=== PATIENT | female | born 1975 | race Two or more races ===

== ENCOUNTER 2016-05-18 22:21 | Emergency (ER) | payer OTHER ==
--- NOTE | 2016-05-19 03:51 | ER Document Report ---
HPI - HPI Patient complains to provider of: right upper arm injury Onset: Other - tuesday Onset/Duration: Persistent Quality of pain: Achy Severity: Moderate Pain Level: 3 Context: She presents emergency department with right upper arm pain after she was cleaning a bathtub at work and fell into the bathtub onto her right upper arm. She reports this happened on Tuesday and she is still hurting. Denies past medical history of injury to the arm. Patient has full range of motion no obvious deformity/ ecchymosis or swelling noted Associated Symptoms: None Exacerbated by: Denies Relieved by: Denies Similar symptoms previously: No Recently seen / treated by doctor: No - CONSTITUTIONAL Constitutional: DENIES: Fever, Chills - REPRODUCTIVE LMP: 2 wks ago - DERM Skin Color: Normal - NURSING COMMENTS Comment: Pt here for pain to Right shoulder, elbow and arm. 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 icehot, heat packs and ibuprofen used at home with little relief. Past Medical History - General Information source: Patient Last Menstrual Period: 3 weeks ago - Social History Smoking Status: Never Smoker Cigarette use (# per day): No Frequency of alcohol use: Occasional Drug Abuse: None Occupation: [employer] Lives with: Family Family History: None Patient has suicidal ideation: No Patient has homicidal ideation: No - Medical History Medical History: Negative Renal/ Medical History: Denies: Hx Peritoneal Dialysis Past Surgical History: Reports: Other - Rhinoplasty Vertical Provider Document - CONSTITUTIONAL Agree With Documented VS: Yes Exam Limitations: No Limitations General Appearance: WD/WN, No Apparent Distress - INFECTION CONTROL TRAVEL OUTSIDE OF THE [place] IN LAST 30 DAYS: No - HEENT HEENT: Atraumatic, Normocephalic - NECK Neck: Normal Inspection, Supple. negative: Lymphadenopathy-Left, Lymphadenopathy-Right - RESPIRATORY Respiratory: Breath Sounds Normal, No Respiratory Distress - CARDIOVASCULAR Cardiovascular: Regular Rate, Regular Rhythm - MUSCULOSKELETAL/EXTREMETIES Musculoskeletal/Extremeties: MAEW, FROM, Non-Tender - Nontender to palpation to right upper arm, elbow, no obvious deformity or swelling no warmth or erythema good radial pulse post cap refill full range of motion - NEURO Level of Consciousness: Awake, Alert, Appropriate Motor/Sensory: No Motor Deficit - DERM Integumentary: Warm, Dry Adult Front & Back Diagram: 1 - c/o pain Discharge - Discharge Clinical Impression: Injury of right upper arm Qualifiers: Encounter type: initial encounter Qualified Code(s): S49.91XA - Unspecified injury of right shoulder and upper arm, initial encounter Condition: Stable Disposition: HOME, SELF-CARE Instructions: Use of Pcuy-Ubl-Tvnitwg Ibuprofen ([facility]) Additional Instructions: *You have been evaluated for right upper arm pain *Follow up with orthopedics for continued pain-call for an appointment *Take ibuprofen as indicated for pain *Follow up with a primary care provider within one week for recheck. *Return to ED for worsening condition, changes, needs Forms: Return to Work
[2016-05-19 04:15] VITALS: BP 109/77
== END 2016-05-19 04:15 | disposition home or self-care (01) ==
LOC: ER 22:21
DX: S49.91XA Unspecified injury of right shoulder and upper arm, initial encounter (principal); M79.601 Pain in right arm; X58.XXXA Exposure to other specified factors, initial encounter
CPT/HCPCS: 99284

== ENCOUNTER → 2017-03-31 | Outpatient (CLI) | payer BC ==
--- NOTE | 2017-03-31 13:16 | WOMENS IMAGING REPORT ---
EXAM DESCRIPTION: BILAT SCREENING MAMMO W/CAD COMPLETED DATE/TIME: 03/31/2017 1:04 pm REASON FOR STUDY: SCREENING MAMMO Z12.31 ENCNTR SCREEN MAMMOGRAM FOR MALIGNANT NEOPLASM OF JAZZ COMPARISON: None. TECHNIQUE: Standard craniocaudal and mediolateral oblique views of each breast recorded using digita l acquisition. LIMITATIONS: None. FINDINGS: No masses, calcifications or architectural distortion. No areas of suspicion. Read with the assistance of CAD. .[facility] - R2 Cenova Version 1.3 .[facility] Imaging - R2 Cenova Version 1.3 .[facility] Imaging - R2 Cenova Version 2.4 .[facility] - R2 Cenova Version 2.4 .[facility] - R2 Telemarketing Agent Version 9.2 IMPRESSION: NORMAL MAMMOGRAM. BIRADS 1. BREAST DENSITY: b. There are scattered areas of fibroglandular density. BIRAD: 1 NEGATIVE RECOMMENDATION: ROUTINE SCREENING COMMENT: The patient has been notified of the results by letter per SA requirements. Additional no tification policies are in place for contacting patient with suspicious or incomplete findings. Quality ID #[id number]: The [employer] recommends an annual screening mammogram for women aged 40 years or over. This facility utilizes a reminder system to ensure that all patients receive reminder letters, and/or direct phone calls for appointments. This includes reminders for routine scr eening mammograms, diagnostic mammograms, or other Breast Imaging Interventions when appropriate. Th is patient will be placed in the appropriate reminder system. The [employer] (ACR) has developed recommendations for screening MRI of the breast s in certain patient populations, to be used in conjunction with mammography. Breast MRI surveillanc e may be appropriate for women with more than 20% lifetime risk of developing breast cancer as deter mined by genetic testing, significant family history of the disease, or history of mantle radiation f or Hodgkins Disease. ACR Practice Guidelines 2008. TECHNICAL DOCUMENTATION: FINDING NUMBER: (1) ASSESSMENT: (1) JOB ID: [id number] [employer]- All Rights Reserved
== END ==
LOC: WI 08:19
PROVIDERS: ATTEND Physician Assistant
DX: Z12.31 Encounter for screening mammogram for malignant neoplasm of breast (principal)
CPT/HCPCS: 77067

== ENCOUNTER 2017-12-19 14:03 | Inpatient (IN) | payer BC, OTHER, MEDICAID ==
[2017-12-19] MEDS ORDERED: ONDANSETRON HCL INJ/PF 4 MG/2 ML SDV IV PRN (14:13)
[2017-12-19] MEDS ORDERED: IBUPROFEN 600 MG TABLET PO PRN (14:17)
--- NOTE | 2017-12-19 14:33 | PDOC H&P ---
History of Present Illness Admission Date/PCP: 12/19/17 14:03 YAMILKA JORDAN Patient complains of: Right-sided flank pain and a fever History of Present Illness: WOJCIECH VILLANUEVA is a 42 year old female Ms. Villanueva is a 42 y/o F with [facility] of Depression, migraines presenting today as walk in complaining of one day history of nausea, vomiting, fever, chills and R low back pain as well as headache. She states she has not been having any urinary symptoms, admits to R low back pain. She admits she feels bloated, has mild epigastric pain. NO change in BM, last BM was yesterday, was stable without blood. No vaginal discharge. She has no history of renal stones. She is followed by psych regularly, taking her medications. LMP was August, irregular per pt. Patient had a CT scan of the abdomen and pelvis done with source the patient have a right perinephric inflammation's and patient's white count is elevated 15 most likely suggest the patient have a right-sided pyelonephritis Discussed with the patient and her patients need IV antibiotic for at least next 72 hours to further close monitor and IV fluid and further evaluation and the patient in the understand and decided to admit directly in the hospital Past Medical History Neurological Medical History: Reports: Migraine Psychiatric Medical History: Reports: Depression, General Anxiety Disorder Past Surgical History Past Surgical History: Reports: None, Other - Rhinoplasty Social History Information Source: Patient Smoking Status: Unknown if Ever Smoked Frequency of Alcohol Use: Rare Hx Recreational Drug Use: No Hx Prescription Drug Abuse: No Family History Family History: None, Reviewed & Not Pertinent Parental Family History Reviewed: Yes Children Family History Reviewed: Yes Sibling(s) Family History Reviewed.: Yes Medication/Allergy Allergies/Adverse Reactions: No Known Allergies Allergy (Unverified 05/19/16 00:30) Review of Systems Constitutional: PRESENT: chills, fever(s), headache(s). ABSENT: weight gain, weight loss Eyes: ABSENT: visual disturbances Ears: ABSENT: hearing changes Cardiovascular: ABSENT: chest pain, dyspnea on exertion, edema, orthropnea, palpitations Respiratory: ABSENT: cough, hemoptysis Gastrointestinal: PRESENT: abdominal pain, nausea, vomiting. ABSENT: constipation, diarrhea, hematemesis, hematochezia Genitourinary: ABSENT: dysuria, hematuria Musculoskeletal: ABSENT: joint swelling Integumentary: ABSENT: rash, wounds Neurological: ABSENT: abnormal gait, abnormal speech, confusion, dizziness, focal weakness, syncope Psychiatric: ABSENT: anxiety, depression, homidical ideation, suicidal ideation Endocrine: ABSENT: cold intolerance, heat intolerance, menstrual abnormalities, polydipsia, polyuria Hematologic/Lymphatic: ABSENT: easy bleeding, easy bruising, lymphadenopathy Physical Exam General appearance: PRESENT: no acute distress, well-developed, well-nourished Head exam: PRESENT: atraumatic, normocephalic Eye exam: PRESENT: conjunctiva pink, EOMI, PERRLA. ABSENT: scleral icterus Ear exam: PRESENT: normal external ear exam Mouth exam: PRESENT: moist, tongue midline Neck exam: PRESENT: full ROM. ABSENT: carotid bruit, JVD, lymphadenopathy, thyromegaly Respiratory exam: PRESENT: clear to auscultation mary Cardiovascular exam: PRESENT: RRR. ABSENT: diastolic murmur, rubs, systolic murmur Pulses: PRESENT: normal dorsalis pedis pul, +2 pedal pulses bilateral Vascular exam: PRESENT: normal capillary refill GI/Abdominal exam: PRESENT: normal bowel sounds, soft, tenderness. ABSENT: distended, guarding, mass, organolmegaly, rebound Additonal comments: Right CVA tenderness Rectal exam: PRESENT: deferred Extremities exam: ABSENT: pedal edema Musculoskeletal exam: PRESENT: ambulatory Neurological exam: PRESENT: alert, awake, oriented to person, oriented to place , oriented to time, oriented to situation, CN II-XII grossly intact. ABSENT: motor sensory deficit Psychiatric exam: PRESENT: appropriate affect, normal mood. ABSENT: homicidal ideation, suicidal ideation Skin exam: PRESENT: dry, intact, warm. ABSENT: cyanosis, rash Assessment & Plan - Diagnosis (1) Pyelonephritis Is this a current diagnosis for this admission?: Yes Plan: Patient CT scan of the abdomen and pelvis shows some right sided perinephric inflammation's with elevated white count most likely suggest the right-sided pyelonephritis start the patient on IV Cipro twice a day and IV fluid (2) Urinary tract bacterial infections Is this a current diagnosis for this admission?: Yes Plan: Send the urine for the culture (3) Fever Qualifiers: Fever type: unspecified Qualified Code(s): R50.9 - Fever, unspecified Is this a current diagnosis for this admission?: Yes Plan: Get the urine culture blood cultures start the antibiotic most likely due to the above conditions (4) Migraine Qualifiers: Migraine type: unspecified Intractability: not intractable Is this a current diagnosis for this admission?: Yes Plan: Continues to current medications (5) Generalized anxiety disorder Is this a current diagnosis for this admission?: Yes Plan: Currently stable continues to current medication - Inpatient Certification Based on my medical assessment, after consideration of the patient's comorbidities, presenting symptoms, or acuity I expect that the services needed warrant INPATIENT care.: Yes I certify that my determination is in accordance with my understanding of Medicare's requirements for reasonable and necessary INPATIENT services [42 CFR 412.3e].: Yes Medical Necessity: Need For IV Fluids, Need for IV Antibiotics Post Hospital Care: D/C Supervisor Wound Documentation - Plan Summary Plan Summary: See MD orders
[2017-12-19] MEDS: ACETAMINOPHEN 325 MG TABLET PO PRN ×2 (15:08→21:03)
[2017-12-19] MEDS: CIPROFLOXACIN 400 MG/D5W RTU 400 MG/200 ML RTUPB IV SCH ×2 (15:35→21:05)
[2017-12-19 16:56] LABS: APPEARANCE,URINE SLIGHTLY-CLOUDY; BILIRUBIN,URINE NEGATIVE (NEGATIVE); COLOR,URINE YELLOW; GLUCOSE, URINE NEGATIVE (NEGATIVE); KETONES,URINE NEGATIVE (NEGATIVE); LEUKOCYTE ESTERASE,URINE SMALL (NEGATIVE); NITRITE,URINE NEGATIVE (NEGATIVE); PROTEIN,URINE 30 mg/dL (NEGATIVE); URINE SPECIFIC GRAVITY 1.011
--- NOTE | 2017-12-19 18:30 | EKG REPORT ---
SEVERITY:- OTHERWISE NORMAL ECG - SINUS TACHYCARDIA : Confirmed by: Bud Boyce MD 19-Dec-2017 18:29:55
--- NOTE | 2017-12-19 19:02 | RADIOLOGY REPORT (SQ) ---
EXAM DESCRIPTION: CT HEAD WITHOUT COMPLETED DATE/TIME: 12/19/2017 6:53 pm REASON FOR STUDY: SYNCOPE COMPARISON: None. TECHNIQUE: Axial images acquired through the brain without intravenous contrast. Images reviewed wi th bone, brain and subdural windows. Additional sagittal and coronal reconstructions were generated. Images stored on PACS. All CT scanners at this facility use dose modulation, iterative reconstruction, and/or weight based d osing when appropriate to reduce radiation dose to as low as reasonably achievable (ALARA). [facility]: Dose Right [facility]: CareDose [facility]: Dose Right [facility]: Teradose 4D [facility]: [employer] RADIATION DOSE: CT Rad equipment meets quality standard of care and radiation dose reduction techniq ues were employed. CTDIvol: 53.2 mGy. DLP: 1124 mGy-cm. mGy. LIMITATIONS: None. FINDINGS: VENTRICLES: Normal size and contour. CEREBRUM: No masses. No hemorrhage. No midline shift. No evidence for acute infarction. Normal gra y/white matter differentiation. No areas of low density in the white matter. CEREBELLUM: No masses. No hemorrhage. No alteration of density. No evidence for acute infarction. EXTRAAXIAL SPACES: No fluid collections. No masses. ORBITS AND GLOBE: No intra- or extraconal masses. Normal contour of globe without masses. CALVARIUM: No fracture. PARANASAL SINUSES: No fluid or mucosal thickening. SOFT TISSUES: No mass or hematoma. OTHER: No other significant finding. IMPRESSION: NORMAL BRAIN CT WITHOUT CONTRAST. EVIDENCE OF ACUTE STROKE: NO. COMMENT: Quality ID # [id number]: Final reports with documentation of one or more dose reduction techniques (e.g., Automated exposure control, adjustment of the mA and/or kV according to patient size, use of iterative reconstruction technique) TECHNICAL DOCUMENTATION: JOB ID: [id number] [employer]- All Rights Reserved Reading location - IP/workstation name: [email or web address]
[2017-12-19] MEDS: FAMOTIDINE 20 MG TABLET PO SCH (21:03)
[2017-12-19] MEDS: CYCLOBENZAPRINE HCL 10 MG TABLET PO SCH (21:03)
[2017-12-19] MEDS: AMITRIPTYLINE HCL 75 MG TABLET PO SCH (21:05)
[2017-12-19] MEDS ORDERED: AMITRIPTYLINE HCL 150 MG PO SCH (22:00)
[2017-12-19] MEDS ORDERED: (PENDING PHARMACY ID) (Cyclobenzaprine Hcl [Flexeril 5 Mg Tablet] 5 MG) PO SCH (22:00)
[2017-12-19] MEDS ORDERED: LORAZEPAM 1 MG TABLET PO SCH (22:00)
[2017-12-20 05:54] LABS: HEMATOCRIT 34.7 % (36.0-47.0); MEAN CORPUSCULAR HEMOGLOBIN 29.8 pg (27.0-33.4); MEAN CORPUSCULAR HGB CONC 34.5 g/dL (32.0-36.0); MEAN CORPUSCULAR VOLUME 86 fl (80-97); PLATELET COUNT 245 10^3/uL (150-450); RED BLOOD COUNT 4.02 10^6/uL (3.72-5.28); RED CELL DISTRIBUTION WIDTH 14.3 % (11.5-14.0); WHITE BLOOD COUNT 11.5 10^3/uL (4.0-10.5)
[2017-12-20 06:12] LABS: ALANINE AMINOTRANSFERASE 54 U/L (9-52); ALBUMIN 3.5 g/dL (3.5-5.0); ALKALINE PHOSPHATASE 77 U/L (38-126); ANION GAP 11 (5-19); ASPARTATE AMINO TRANSFERASE 29 U/L (14-36); BILIRUBIN,DIRECT 0.2 mg/dL (0.0-0.4); BILIRUBIN,TOTAL 0.6 mg/dL (0.2-1.3); BLOOD UREA NITROGEN 8 mg/dL (7-20); CALCIUM 9.3 mg/dL (8.4-10.2); CARBON DIOXIDE 27 mmol/L (22-30); CHLORIDE 103 mmol/L (98-107); GLUCOSE 119 mg/dL (75-110); POTASSIUM 4.2 mmol/L (3.6-5.0); SODIUM 141.3 mmol/L (137-145); TOTAL PROTEIN 6.9 g/dL (6.3-8.2)
[2017-12-20 07:01] LABS: ABSOLUTE LYMPHOCYTES# (MANUAL) 0.8 10^3/uL (0.5-4.7); ABSOLUTE MONOCYTES # (MANUAL) 0.5 10^3/uL (0.1-1.4); ABSOLUTE NEUTROPHILS# (MANUAL) 10.2 10^3/uL (1.7-8.2); BAND NEUTROPHILS % (MANUAL) 1 % (3-5); BASOPHILS % (MANUAL) 0 % (0-2); EOSINOPHILS % (MANUAL) 0 % (0-6); LYMPHOCYTES % (MANUAL) 5 % (13-45); MONOCYTES % (MANUAL) 4 % (3-13); SEGMENTED NEUTROPHILS % (MAN) 88 % (42-78); TOTAL CELLS COUNTED 100
[2017-12-20 07:03] LABS: ANISOCYTOSIS SLIGHT; OVALOCYTES SLIGHT; PLATELET COMMENT ADEQUATE; POIKILOCYTOSIS SLIGHT; TOXIC GRANULATION 1+
[2017-12-20] MEDS: ENOXAPARIN SODIUM INJ 40 MG/0.4 ML DISP.SYRIN SUBCUT SCH (09:39)
[2017-12-20] MEDS: ACETAMINOPHEN 325 MG TABLET PO PRN ×2 (09:40→16:38)
[2017-12-20] MEDS: CIPROFLOXACIN 400 MG/D5W RTU 400 MG/200 ML RTUPB IV SCH (09:40)
[2017-12-20] MEDS: FAMOTIDINE 20 MG TABLET PO SCH ×2 (09:40→21:26)
[2017-12-20] MEDS ORDERED: SERTRALINE HCL 50 MG TABLET PO SCH (10:00)
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
--- NOTE | 2017-12-20 10:51 | PDOC PROGRESS REPORT ---
Subjective Progress Note for:: 12/20/17 Subjective:: Patient is currently doing fair Patient's denied any chest pain denied any shortness of the breath Patient still have a lot of anxiety still running a fever Patient also tachycardic due to the fever Patient CT of the head was negative And it was some syncopal episode when he admitted yesterday but very brief and most likely related to the according to the hospital probably from anxiety Since currently seen by the psych Reason For Visit: RIGHT SIDED PYLONEPHRITIS Physical Exam Vital Signs: Temp Pulse Resp BP Pulse Ox 102.8 F H 131 H 24 H 114/65 97 12/20/17 10:11 12/20/17 10:11 12/20/17 10:11 12/20/17 10:11 12/20/17 10:11 Intake & Output 12/19/17 12/20/17 12/21/17 06:59 06:59 06:59 Intake Total 942 Output Total 1700 Balance -758 Weight 81.8 kg General appearance: PRESENT: no acute distress, well-developed, well-nourished Head exam: PRESENT: atraumatic, normocephalic Eye exam: PRESENT: conjunctiva pink, EOMI, PERRLA. ABSENT: scleral icterus Ear exam: PRESENT: normal external ear exam Mouth exam: PRESENT: moist, tongue midline Neck exam: PRESENT: full ROM. ABSENT: carotid bruit, JVD, lymphadenopathy, thyromegaly Respiratory exam: PRESENT: clear to auscultation mary Cardiovascular exam: PRESENT: RRR, tachycardia. ABSENT: diastolic murmur, rubs , systolic murmur Pulses: PRESENT: normal dorsalis pedis pul, +2 pedal pulses bilateral Vascular exam: PRESENT: normal capillary refill GI/Abdominal exam: PRESENT: normal bowel sounds, soft. ABSENT: distended, guarding, mass, organolmegaly, rebound, tenderness Rectal exam: PRESENT: deferred Extremities exam: ABSENT: pedal edema Neurological exam: PRESENT: alert, awake, oriented to person, oriented to place , oriented to time, oriented to situation, CN II-XII grossly intact. ABSENT: motor sensory deficit Psychiatric exam: PRESENT: appropriate affect, normal mood. ABSENT: homicidal ideation, suicidal ideation Skin exam: PRESENT: dry, intact, warm. ABSENT: cyanosis, rash Results Laboratory Results: 12/20/17 05:16 12/20/17 05:16 12/19/17 12/20/17 12/20/17 16:28 05:16 05:16 WBC 11.5 H RBC 4.02 Hgb 12.0 Hct 34.7 L MCV 86 MCH 29.8 MCHC 34.5 RDW 14.3 H Plt Count 245 Seg Neutrophils % Not Reportable Lymphocytes % Not Reportable Monocytes % Not Reportable Eosinophils % Not Reportable Basophils % Not Reportable Absolute Neutrophils Not Reportable Absolute Lymphocytes Not Reportable Absolute Monocytes Not Reportable Absolute Eosinophils Not Reportable Absolute Basophils Not Reportable Sodium 141.3 Potassium 4.2 Chloride 103 Carbon Dioxide 27 Anion Gap 11 BUN 8 Creatinine 0.71 Est GFR ( Amer) > 60 Est GFR (Non-Af Amer) > 60 Glucose 119 H Calcium 9.3 Total Bilirubin 0.6 AST 29 ALT 54 H Alkaline Phosphatase 77 Total Protein 6.9 Albumin 3.5 Urine Color YELLOW Urine Appearance SLIGHTLY-CLOUDY Urine pH 6.0 Ur Specific [place] 1.011 Urine Protein 30 H Urine Glucose (UA) NEGATIVE Urine Ketones NEGATIVE Urine Blood SMALL H Urine Nitrite NEGATIVE Ur Leukocyte Esterase SMALL H Urine WBC (Auto) 10 Urine RBC (Auto) 3 Impressions: Head CT 12/19/17 00:00 IMPRESSION: NORMAL BRAIN CT WITHOUT CONTRAST. EVIDENCE OF ACUTE STROKE: NO. Assessment & Plan - Diagnosis (1) Pyelonephritis Is this a current diagnosis for this admission?: Yes Plan: Patient urine cultures grew out gram-negative organism will continues to IV Cipro and follow with the culture and sensitivity (2) Urinary tract bacterial infections Is this a current diagnosis for this admission?: Yes Plan: Send the urine for the culture (3) Fever Qualifiers: Fever type: unspecified Qualified Code(s): R50.9 - Fever, unspecified Is this a current diagnosis for this admission?: Yes Plan: Continues to IV antibiotic (4) Migraine Qualifiers: Migraine type: unspecified Intractability: not intractable Is this a current diagnosis for this admission?: Yes Plan: Continues to current medications (5) Generalized anxiety disorder Is this a current diagnosis for this admission?: Yes Plan: Currently stable continues to current medication - Time Time Spent with patient: 15-24 minutes Medications reviewed and adjusted accordingly: Yes Anticipated discharge: Home Within: Other - Inpatient Certification Based on my medical assessment, after consideration of the patient's comorbidities, presenting symptoms, or acuity I expect that the services needed warrant INPATIENT care.: Yes I certify that my determination is in accordance with my understanding of Medicare's requirements for reasonable and necessary INPATIENT services [42 CFR 412.3e].: Yes Medical Necessity: Need Close Monitoring Due to Risk of Patient Decompensation, Need For IV Fluids, Need for IV Antibiotics Post Hospital Care: D/C Recreation Therapy Aide Documentation - Plan Summary Plan Summary: Continues to IV antibiotic wait for the culture and sensitivity continues to IV fluid
[2017-12-20] MEDS: VENLAFAXINE HCL 37.5 MG CAP.SR.24H PO SCH (11:12)
[2017-12-20] MEDS: BUSPIRONE HCL 10 MG TABLET PO SCH ×2 (11:12→17:00)
--- NOTE | 2017-12-20 14:34 | Progress Note ---
Provider Note Provider Note: ID Consult Note Asked to review patient's chart by Pharmacy. Pt not seen or examined. Pt is a 42 year old woman who presented for admission on 12/19/17 with c/o R sided flank pain and fever. She reported 1 day hx of nausea, vomiting, fever, chills, R low back pain. Pt had fever up to 103 F on presentation and tachycardia. On exam, pt was noted to have R CVAT. BCx were drawn and from one set a GNR that has yet to be identified has grown. U/A included small amount of leukocyte esterase and 10 wbc/hpf. Urine culture is also in process and has been preliminarily reported as also showing GNRs. CT abdomen and pelvis without contrast showed edematous appearing R kidney with perinephric stranding. Empirically Cipro IV was started 400 q 8h. Impression/Recommendations Pt has sepsis due to Gram negative bacillary bacteremia, suspected to be secondary to pyelonephritis. Regarding empiric antibiotic therapy: Based on the [facility] antibiogram, 90% or greater isolates of E coli (which is the most common uropathogen) are susceptible to Rocephin, Zosyn, or cefepime. This is in contrast to Cipro, for which only 80% of isolates of E coli were reported susceptible. If pt has not shown improvement with empiric Cipro, the possibility of a resistant isolate should be kept in mind, and it would be reasonable to change from Cipro to any one of these three agents. Depending on susceptibility results, it might be possible to later switch back to either Cipro PO or Bactrim PO to complete treatment once pt has improved sufficiently and consistently is able to tolerate PO intake. If pt reports IV antibiotic exposure in the past 3 months, the possibility of the patient having been colonized with Pseudomonas aeruginosa could also be entertained, and an antipseudomonal antibiotic such as Zosyn or cefepime in that situation would make sense to use empirically. If this history is unknown, suggest Zosyn or cefepime and then de-escalating subsequently. Lukas Saravia MD [facility] Infectious Diseases pager [phone]
[2017-12-20] MEDS: CEFEPIME 2 GM/D5W RTU 2 GM/50 ML RTUPB IV SCH (15:47)
[2017-12-20] MEDS: NORMAL SALINE 1000 ML 1,000 ML IV PRN (15:48)
[2017-12-20] MEDS: AMITRIPTYLINE HCL 75 MG TABLET PO SCH (21:26)
[2017-12-20] MEDS: CYCLOBENZAPRINE HCL 10 MG TABLET PO SCH (21:26)
[2017-12-20] MEDS: LORAZEPAM 1 MG TABLET PO PRN (21:26)
[2017-12-21] MEDS: ACETAMINOPHEN 325 MG TABLET PO PRN ×3 (00:20→22:03)
[2017-12-21] MEDS: NORMAL SALINE 1000 ML 1,000 ML IV PRN (02:36)
[2017-12-21 04:37] LABS: ABSOLUTE LYMPHOCYTES (AUTO) 1.1 10^3/uL (0.5-4.7); ABSOLUTE NEUT (AUTO) 7.6 10^3/uL (1.7-8.2); BASOPHILS % (AUTO) 0.3 % (0-2); EOSINOPHILS % (AUTO) 0.1 % (0-6); HEMATOCRIT 31.4 % (36.0-47.0); HEMOGLOBIN 10.9 g/dL (12.0-15.5); LYMPHOCYTES % (AUTO) 11.5 % (13-45); MEAN CORPUSCULAR HEMOGLOBIN 29.6 pg (27.0-33.4); MEAN CORPUSCULAR HGB CONC 34.8 g/dL (32.0-36.0); MEAN CORPUSCULAR VOLUME 85 fl (80-97); MONOCYTES % (AUTO) 10.3 % (3-13); PLATELET COUNT 250 10^3/uL (150-450); SEGMENTED NEUTROPHILS % (AUTO) 77.8 % (42-78); TOTAL CELLS COUNTED % (AUTO) 100 %; WHITE BLOOD COUNT 9.8 10^3/uL (4.0-10.5)
[2017-12-21 05:05] LABS: ANION GAP 14 (5-19); BLOOD UREA NITROGEN 4 mg/dL (7-20); CALCIUM 8.8 mg/dL (8.4-10.2); CARBON DIOXIDE 21 mmol/L (22-30); CHLORIDE 107 mmol/L (98-107); GLUCOSE 119 mg/dL (75-110); SODIUM 142.3 mmol/L (137-145)
[2017-12-21] MEDS: CEFEPIME 2 GM/D5W RTU 2 GM/50 ML RTUPB IV SCH ×2 (05:23→17:16)
[2017-12-21] MEDS ORDERED: NORMAL SALINE 1000 ML 1,000 ML IV PRN (07:42)
[2017-12-21] MEDS: BUSPIRONE HCL 10 MG TABLET PO SCH ×2 (09:04→17:17)
[2017-12-21] MEDS: ENOXAPARIN SODIUM INJ 40 MG/0.4 ML DISP.SYRIN SUBCUT SCH (09:06)
[2017-12-21] MEDS: FAMOTIDINE 20 MG TABLET PO SCH ×2 (09:07→21:09)
[2017-12-21] MEDS: VENLAFAXINE HCL 37.5 MG CAP.SR.24H PO SCH (09:11)
--- NOTE | 2017-12-21 09:44 | PDOC PROGRESS REPORT ---
Subjective Progress Note for:: 12/21/17 Subjective:: Patient is feeling much better patient his fever is also coming down patient was put on IV cefepime yesterday Patient is E. coli sensitive to the Cipro and cefepime both Will wait for the [facility] report Reason For Visit: RIGHT SIDED PYLONEPHRITIS Physical Exam Vital Signs: Temp Pulse Resp BP Pulse Ox 97.8 F 92 14 90/53 L 100 12/21/17 08:05 12/21/17 08:05 12/21/17 08:05 12/21/17 08:05 12/21/17 08:05 Intake & Output 12/20/17 12/21/17 12/22/17 06:59 06:59 06:59 Intake Total 942 1818 Output Total 1700 Balance -758 1818 Weight 81.8 kg 82.7 kg General appearance: PRESENT: no acute distress, well-developed, well-nourished Head exam: PRESENT: atraumatic, normocephalic Eye exam: PRESENT: conjunctiva pink, EOMI, PERRLA. ABSENT: scleral icterus Ear exam: PRESENT: normal external ear exam Mouth exam: PRESENT: moist, tongue midline Neck exam: PRESENT: full ROM. ABSENT: carotid bruit, JVD, lymphadenopathy, thyromegaly Respiratory exam: PRESENT: clear to auscultation mary Cardiovascular exam: PRESENT: RRR. ABSENT: diastolic murmur, rubs, systolic murmur Pulses: PRESENT: normal dorsalis pedis pul, +2 pedal pulses bilateral Vascular exam: PRESENT: normal capillary refill GI/Abdominal exam: PRESENT: normal bowel sounds, soft. ABSENT: distended, guarding, mass, organolmegaly, rebound, tenderness Rectal exam: PRESENT: deferred Musculoskeletal exam: PRESENT: ambulatory Neurological exam: PRESENT: alert, awake, oriented to person, oriented to place , oriented to time, oriented to situation, CN II-XII grossly intact. ABSENT: motor sensory deficit Psychiatric exam: PRESENT: appropriate affect, normal mood. ABSENT: homicidal ideation, suicidal ideation Skin exam: PRESENT: dry, intact, warm. ABSENT: cyanosis, rash Results Laboratory Results: 12/21/17 04:18 12/21/17 04:18 12/21/17 12/21/17 12/21/17 04:18 04:18 04:18 WBC 9.8 RBC 3.70 L Hgb 10.9 L Hct 31.4 L MCV 85 MCH 29.6 MCHC 34.8 RDW 14.0 Plt Count 250 Seg Neutrophils % 77.8 Lymphocytes % 11.5 L Monocytes % 10.3 Eosinophils % 0.1 Basophils % 0.3 Absolute Neutrophils 7.6 Absolute Lymphocytes 1.1 Absolute Monocytes 1.0 Absolute Eosinophils 0.0 Absolute Basophils 0.0 Sodium 142.3 Potassium 4.0 Chloride 107 Carbon Dioxide 21 L Anion Gap 14 BUN 4 L Creatinine 0.54 Est GFR ( Amer) > 60 Est GFR (Non-Af Amer) > 60 Glucose 119 H Lactic Acid 0.9 Calcium 8.8 Impressions: Head CT 12/19/17 00:00 IMPRESSION: NORMAL BRAIN CT WITHOUT CONTRAST. EVIDENCE OF ACUTE STROKE: NO. Assessment & Plan - Diagnosis (1) Pyelonephritis Is this a current diagnosis for this admission?: Yes Plan: Continues to IV antibiotic hopefully discharge with the p.o. antibiotic if remains afebrile next 24 hours (2) Urinary tract bacterial infections Is this a current diagnosis for this admission?: Yes Plan: Send the urine for the culture (3) Fever Qualifiers: Fever type: unspecified Qualified Code(s): R50.9 - Fever, unspecified Is this a current diagnosis for this admission?: Yes Plan: Continues to IV antibiotic (4) Migraine Qualifiers: Migraine type: unspecified Intractability: not intractable Is this a current diagnosis for this admission?: Yes Plan: Continues to current medications (5) Generalized anxiety disorder Is this a current diagnosis for this admission?: Yes Plan: Currently stable continues to current medication (6) Gram negative sepsis Is this a current diagnosis for this admission?: Yes Plan: Continues to IV antibiotic - Time Time Spent with patient: 15-24 minutes Medications reviewed and adjusted accordingly: Yes Anticipated discharge: Home Within: within 24 hours - Inpatient Certification Based on my medical assessment, after consideration of the patient's comorbidities, presenting symptoms, or acuity I expect that the services needed warrant INPATIENT care.: Yes I certify that my determination is in accordance with my understanding of Medicare's requirements for reasonable and necessary INPATIENT services [42 CFR 412.3e].: Yes Medical Necessity: Need For IV Fluids, Need for IV Antibiotics Post Hospital Care: D/C Psychiatric Orderly Documentation - Plan Summary Plan Summary: Continues to current medication
[2017-12-21] MEDS: AMITRIPTYLINE HCL 75 MG TABLET PO SCH (21:08)
[2017-12-21] MEDS: CYCLOBENZAPRINE HCL 10 MG TABLET PO SCH (21:09)
[2017-12-21] MEDS: LORAZEPAM 1 MG TABLET PO PRN (21:09)
[2017-12-22 04:44] VITALS: BP 104/67
[2017-12-22 05:32] LABS: ABSOLUTE EOSINOPHILS # (AUTO) 0.1 10^3/uL (0.0-0.6); ABSOLUTE LYMPHOCYTES (AUTO) 1.5 10^3/uL (0.5-4.7); ABSOLUTE MONOCYTES (AUTO) 0.8 10^3/uL (0.1-1.4); ABSOLUTE NEUT (AUTO) 3.9 10^3/uL (1.7-8.2); BASOPHILS % (AUTO) 0.4 % (0-2); HEMATOCRIT 31.2 % (36.0-47.0); HEMOGLOBIN 10.8 g/dL (12.0-15.5); LYMPHOCYTES % (AUTO) 23.5 % (13-45); MEAN CORPUSCULAR HEMOGLOBIN 29.5 pg (27.0-33.4); MEAN CORPUSCULAR HGB CONC 34.4 g/dL (32.0-36.0); MEAN CORPUSCULAR VOLUME 86 fl (80-97); MONOCYTES % (AUTO) 12.7 % (3-13); PLATELET COUNT 286 10^3/uL (150-450); RED BLOOD COUNT 3.65 10^6/uL (3.72-5.28); RED CELL DISTRIBUTION WIDTH 14.2 % (11.5-14.0); SEGMENTED NEUTROPHILS % (AUTO) 62.4 % (42-78); TOTAL CELLS COUNTED % (AUTO) 100 %; WHITE BLOOD COUNT 6.3 10^3/uL (4.0-10.5)
[2017-12-22 05:54] LABS: ANION GAP 13 (5-19); BLOOD UREA NITROGEN 5 mg/dL (7-20); CALCIUM 8.5 mg/dL (8.4-10.2); CARBON DIOXIDE 22 mmol/L (22-30); CHLORIDE 106 mmol/L (98-107); GLUCOSE 92 mg/dL (75-110); POTASSIUM 3.9 mmol/L (3.6-5.0)
[2017-12-22] MEDS: CEFEPIME 2 GM/D5W RTU 2 GM/50 ML RTUPB IV SCH (06:05)
--- NOTE | 2017-12-22 08:33 | PDOC DISCHARGE SUMMARY ---
General - Admit/Disc Date/PCP Admission Date/Primary Care Provider: 12/19/17 14:03 YAMILKA JORDAN Discharge Date: 12/22/17 - Discharge Diagnosis (1) Pyelonephritis Is this a current diagnosis for this admission?: Yes Summary: Continue Cipro 500 mg twice daily for 10 days currently all resolving (2) Urinary tract bacterial infections Is this a current diagnosis for this admission?: Yes Summary: E. coli urinary tract infection sensitive to this Cipro (3) Fever Is this a current diagnosis for this admission?: Yes Summary: Due to the above conditions currently all resolved (4) Migraine Is this a current diagnosis for this admission?: Yes (5) Generalized anxiety disorder Is this a current diagnosis for this admission?: Yes Summary: Patient is currently follow with the psychiatrist (6) Gram negative sepsis Is this a current diagnosis for this admission?: Yes Summary: Due to the above conditions currently resolved and afebrile - Additional Information Discharge Diet: Regular Discharge Activity: Activity As Tolerated Prescriptions: Buspirone HCl [Buspar 10 mg Tablet] 5 mg PO BID #60 tablet Ciprofloxacin HCl [Cipro 500 mg Tablet] 500 mg PO BID #20 tablet Home Medications: Amitriptyline HCl [Elavil 100 mg Tablet] 150 mg PO QHS 12/19/17 Cyclobenzaprine HCl [Flexeril 5 mg Tablet] 5 mg PO HSP PRN 12/19/17 Lorazepam [Ativan 1 mg Tablet] 1 mg PO QHS 12/19/17 Prazosin HCl [Minipress] 1 mg PO HSP PRN 12/19/17 Sertraline HCl [Zoloft 50 mg Tablet] 50 mg PO DAILY 12/19/17 Buspirone HCl [Buspar 10 mg Tablet] 5 mg PO BID #60 tablet 12/22/17 Ciprofloxacin HCl [Cipro 500 mg Tablet] 500 mg PO BID #20 tablet 12/22/17 History of Present Illness History of Present Illness: WOJCIECH VILLANUEVA is a 42 year old female Ms. Villanueva is a 42 y/o F with OMH of Depression, migraines presenting today as walk in complaining of one day history of nausea, vomiting, fever, chills and R low back pain as well as headache. She states she has not been having any urinary symptoms, admits to R low back pain. She admits she feels bloated, has mild epigastric pain. NO change in BM, last BM was yesterday, was stable without blood. No vaginal discharge. She has no history of renal stones. She is followed by psych regularly, taking her medications. LMP was August, irregular per pt. Patient had a CT scan of the abdomen and pelvis done with source the patient have a right perinephric inflammation's and patient's white count is elevated 15 most likely suggest the patient have a right-sided pyelonephritis Discussed with the patient and her patients need IV antibiotic for at least next 72 hours to further close monitor and IV fluid and further evaluation and the patient in the understand and decided to admit directly in the hospital Hospital Course Hospital Course: This is a 42-year-old female present in office with a fever chills and a right- sided CVA tenderness in the diagnosed with the UTI and the right-sided pyelonephritis Due to the fever tachycardia patient's admitting in the hospital for IV antibiotic and IV fluid Initially put on IV Cipro and change to the IV cefepime as per the ID suggestions in patients who received a 3-day course of the antibiotic IV and the response very well and remained afebrile for the last more than 24 hours and patient's white count is all normal Patient's cultures grew out E. coli and sensitive to the Cipro Patient's p.o. intake is good patients walk in the hallway without any problems Patient having issue with the ongoing psych problems and the nurse is concerned about the patient having some suicidal thought and a psych was consulted and patients was currently clear Discussed with the regarding the patient's current condition and close follow-up discussed with the if is any increasing any fever or chills and is to follow in the er otherwise patient follow with the psych Physical Exam Vital Signs: Temp Pulse Resp BP Pulse Ox 97.6 F 89 17 104/67 100 12/22/17 07:56 12/22/17 07:56 12/22/17 07:56 12/22/17 07:56 12/22/17 07:56 Intake & Output 12/21/17 12/22/17 12/23/17 06:59 06:59 06:59 Intake Total 1818 2391 Balance 1818 2391 Weight 82.7 kg 72.4 kg General appearance: PRESENT: no acute distress, well-developed, well-nourished Head exam: PRESENT: atraumatic, normocephalic Eye exam: PRESENT: conjunctiva pink, EOMI, PERRLA. ABSENT: scleral icterus Ear exam: PRESENT: normal external ear exam Mouth exam: PRESENT: moist, tongue midline Neck exam: PRESENT: full ROM. ABSENT: carotid bruit, JVD, lymphadenopathy, thyromegaly Respiratory exam: PRESENT: clear to auscultation mary Cardiovascular exam: PRESENT: RRR. ABSENT: diastolic murmur, rubs, systolic murmur Pulses: PRESENT: normal dorsalis pedis pul, +2 pedal pulses bilateral Vascular exam: PRESENT: normal capillary refill GI/Abdominal exam: PRESENT: normal bowel sounds, soft. ABSENT: distended, guarding, mass, organolmegaly, rebound, tenderness Rectal exam: PRESENT: deferred Extremities exam: ABSENT: pedal edema Musculoskeletal exam: PRESENT: ambulatory Neurological exam: PRESENT: alert, awake, oriented to person, oriented to place , oriented to time, oriented to situation, CN II-XII grossly intact. ABSENT: motor sensory deficit Psychiatric exam: PRESENT: appropriate affect, normal mood. ABSENT: homicidal ideation, suicidal ideation Skin exam: PRESENT: dry, intact, warm. ABSENT: cyanosis, rash Results Laboratory Results: 12/22/17 04:24 12/22/17 04:24 12/22/17 12/22/17 04:24 04:24 WBC 6.3 RBC 3.65 L Hgb 10.8 L Hct 31.2 L MCV 86 MCH 29.5 MCHC 34.4 RDW 14.2 H Plt Count 286 Seg Neutrophils % 62.4 Lymphocytes % 23.5 Monocytes % 12.7 Eosinophils % 1.0 Basophils % 0.4 Absolute Neutrophils 3.9 Absolute Lymphocytes 1.5 Absolute Monocytes 0.8 Absolute Eosinophils 0.1 Absolute Basophils 0.0 Sodium 141.0 Potassium 3.9 Chloride 106 Carbon Dioxide 22 Anion Gap 13 BUN 5 L Creatinine 0.63 Est GFR ( Amer) > 60 Est GFR (Non-Af Amer) > 60 Glucose 92 Calcium 8.5 Impressions: Head CT 12/19/17 00:00 IMPRESSION: NORMAL BRAIN CT WITHOUT CONTRAST. EVIDENCE OF ACUTE STROKE: NO. Qualifiers - * PATIENT BEING DISCHARGED WITH ANY OF THE FOLLOWING DIAGNOSIS: No VTE patient discharged on overlapping Therapy?: Yes Plan Time Spent: Greater than 30 Minutes - Following office in 1 week repeat the CBC and Chem-7
== END 2017-12-22 08:48 | disposition home or self-care (01) | DRG 872 ==
LOC: 5 14:03
PROVIDERS: ADMIT Family Medicine; ATTEND Family Medicine
DX: A41.50 Gram-negative sepsis, unspecified (principal); N12 Tubulo-interstitial nephritis, not specified as acute or chronic; N39.0 Urinary tract infection, site not specified; B96.20 Unspecified Escherichia coli [E. coli] as the cause of diseases classified elsewhere; G43.909 Migraine, unspecified, not intractable, without status migrainosus; F41.1 Generalized anxiety disorder; F32.9 Major depressive disorder, single episode, unspecified; F43.10 Post-traumatic stress disorder, unspecified
CPT/HCPCS: 36415; 70450; 80048; 80053; 81001; 83605; 85025; 87040; 87077; 87086; 87088; 87186; 93005; 93010; J0692; J0744; J3490; J7030

== ENCOUNTER → 2017-12-19 | Outpatient (CLI) | payer BC ==
[2017-12-19 11:49] LABS: ABSOLUTE BASOPHILS # (AUTO) 0.1 10^3/uL (0.0-0.2); ABSOLUTE LYMPHOCYTES (AUTO) 1.1 10^3/uL (0.5-4.7); ABSOLUTE MONOCYTES (AUTO) 1.1 10^3/uL (0.1-1.4); ABSOLUTE NEUT (AUTO) 12.9 10^3/uL (1.7-8.2); BASOPHILS % (AUTO) 0.5 % (0-2); HEMATOCRIT 35.5 % (36.0-47.0); HEMOGLOBIN 12.2 g/dL (12.0-15.5); LYMPHOCYTES % (AUTO) 7.3 % (13-45); MEAN CORPUSCULAR HEMOGLOBIN 29.8 pg (27.0-33.4); MEAN CORPUSCULAR HGB CONC 34.5 g/dL (32.0-36.0); MEAN CORPUSCULAR VOLUME 86 fl (80-97); MONOCYTES % (AUTO) 7.1 % (3-13); PLATELET COUNT 288 10^3/uL (150-450); RED BLOOD COUNT 4.11 10^6/uL (3.72-5.28); RED CELL DISTRIBUTION WIDTH 14.4 % (11.5-14.0); SEGMENTED NEUTROPHILS % (AUTO) 85.1 % (42-78); TOTAL CELLS COUNTED % (AUTO) 100 %; WHITE BLOOD COUNT 15.2 10^3/uL (4.0-10.5)
--- NOTE | 2017-12-19 12:05 | RADIOLOGY REPORT (SQ) ---
EXAM DESCRIPTION: CT ABD/PELVIS NO ORAL OR IV COMPLETED DATE/TIME: 12/19/2017 11:40 am REASON FOR STUDY: ACUTE PYELONEPHRITIS N10 ACUTE PYELONEPHRITIS COMPARISON: None. TECHNIQUE: CT scan of the abdomen and pelvis performed without intravenous or oral contrast. Images reviewed with lung, soft tissue, and bone windows. Reconstructed coronal and sagittal MPR images revi ewed. All images stored on PACS. All CT scanners at this facility use dose modulation, iterative reconstruction, and/or weight based d osing when appropriate to reduce radiation dose to as low as reasonably achievable (ALARA). [facility]: Dose Right [facility]: CareDose [facility]: Dose Right [facility]: Teradose 4D [facility]: Smart [employer] RADIATION DOSE: CT Rad equipment meets quality standard of care and radiation dose reduction techniq ues were employed. CTDIvol: 8.0 mGy. DLP: 435 mGy-cm.mGy. LIMITATIONS: None. FINDINGS: LOWER CHEST: No significant findings. No nodules or infiltrates. NON-CONTRASTED LIVER, SPLEEN, ADRENALS: Evaluation limited by lack of IV contrast. Fatty infiltratio n of the liver. No identified significant masses. PANCREAS: No masses. No peripancreatic inflammatory changes. GALLBLADDER: No identified stones by CT criteria. No inflammatory changes to suggest cholecystitis. RIGHT KIDNEY AND URETER: The kidney appears generally edematous with stranding in the perinephric sof t tissues. No abnormal fluid collections. No suspicious masses. Assessment limited by lack of IV co ntrast. No significant calcifications. No hydronephrosis or hydroureter. LEFT KIDNEY AND URETER: No suspicious masses. Assessment limited by lack of IV contrast. No signifi cant calcifications. No hydronephrosis or hydroureter. AORTA AND RETROPERITONEUM: No aneurysm. No retroperitoneal masses or adenopathy. BOWEL AND PERITONEAL CAVITY: No obvious masses or inflammatory changes. No free fluid. APPENDIX: Normal. PELVIS, BLADDER, AND ABDOMINAL WALL:2.2 x 3.3 cm left ovarian cyst. No free fluid. Bladder normal. BONES: No significant findings. OTHER: No other significant finding. IMPRESSION: 1. THE RIGHT KIDNEY IS GENERALLY EDEMATOUS WITH INFLAMMATORY CHANGES IN THE PERINEPHRIC SOFT TISSUES. NO ABNORMAL FLUID COLLECTIONS OR EVIDENCE OF ABSCESS. NO CALCULI OR OBSTRUCTIVE UROPATHY. 2. DIFFUSE FATTY INFILTRATION OF THE LIVER. 3. LEFT OVARIAN CYST. 4. NO OTHER SIGNIFICANT OR ACUTE PROCESS IN THE ABDOMEN OR PELVIS. COMMENT: Quality ID # 436: Final reports with documentation of one or more dose reduction techniques (e.g., Automated exposure control, adjustment of the mA and/or kV according to patient size, use of iterative reconstruction technique) TECHNICAL DOCUMENTATION: JOB ID: [id number] [email or web address]- All Rights Reserved Reading location - IP/workstation name: [email or web address] [id number]
[2017-12-19 12:06] LABS: ALANINE AMINOTRANSFERASE 47 U/L (9-52); ALKALINE PHOSPHATASE 85 U/L (38-126); ANION GAP 15 (5-19); ASPARTATE AMINO TRANSFERASE 23 U/L (14-36); BILIRUBIN,DIRECT 0.1 mg/dL (0.0-0.4); BILIRUBIN,TOTAL 0.6 mg/dL (0.2-1.3); BLOOD UREA NITROGEN 11 mg/dL (7-20); CALCIUM 8.8 mg/dL (8.4-10.2); CARBON DIOXIDE 24 mmol/L (22-30); CHLORIDE 100 mmol/L (98-107); GLUCOSE 111 mg/dL (75-110); LIPASE 23.1 U/L (23-300); POTASSIUM 4.1 mmol/L (3.6-5.0); SODIUM 138.8 mmol/L (137-145); TOTAL PROTEIN 7.4 g/dL (6.3-8.2)
== END ==
LOC: RAD 11:20
PROVIDERS: ATTEND Physician Assistant
DX: N10 Acute pyelonephritis (principal); M54.5 Low back pain; N83.202 Unspecified ovarian cyst, left side
CPT/HCPCS: 36415; 74176; 80053; 83690; 85025

== ENCOUNTER → 2018-03-30 | Day surgery (SDC) | payer BC ==
[~2018-03-30] MED LIST: BENZOCAINE 20% AEROSOL SPRAY 60 GM ONE; LIDOCAINE 2% JELLY 5 ML TUBE ONE
== END ==
LOC: END 08:02
PROVIDERS: ATTEND Internal Medicine Gastroenterology
DX: R10.13 Epigastric pain (principal); K21.9 Gastro-esophageal reflux disease without esophagitis
CPT/HCPCS: 91010; J3490

== ENCOUNTER → 2018-03-31 | Outpatient (CLI) | payer BC ==
--- NOTE | 2018-03-31 11:19 | RADIOLOGY REPORT (SQ) ---
EXAM DESCRIPTION: BARIUM SWALLOW ESOPHAGUS COMPLETED DATE/TIME: 03/31/2018 9:22 am REASON FOR STUDY: ABNORMAL FINDINGS ON DIAGNOSTIC IMAGING OF OTHER PARTS OF DIGESTIVE TRACT R11.11 VOMITING WITHOUT NAUSEA R93.3 ABNORMAL FINDINGS ON DX IMAGING OF PRT DIGESTIVE TRACT COMPARISON: 12/19/2017 TECHNIQUE: Under fluoroscopic guidance, patient ingested thin barium. Fluoroscopic spot images and r outine radiographic images acquired and stored on PACS. 12 MM BARIUM TABLET GIVEN: No. LIMITATIONS: None. FLUOROSCOPY TIME: 3.15 minutes 15 images saved to PACS. FINDINGS: NEUROMUSCULAR COORDINATION OF SWALLOW: Normal. No aspiration. ESOPHAGEAL MOTILITY: Excessive esophageal dysmotility with impaired relaxation of the lower esophagea l sphincter with resultant dilation of the distal esophagus. Occasional intermittent passage of cont rast through the gastroesophageal junction was noted. ESOPHAGEAL MUCOSA: Normal mucosa without masses or ulceration. GASTRO-ESOPHAGEAL JUNCTION: Impaired relaxation of the GE junction. Occasional intermittent passage of contrast noted. No hiatal hernia or reflux. NON-GI TRACT STRUCTURES: No significant finding. OTHER: No other significant finding. IMPRESSION: Impaired relaxation of the lower esophageal sphincter with excessive esophageal dysmotil ity and resultant dilation of the distal esophagus. Findings suggestive of achalasia which can be id iopathic or seen with Chagas disease. COMMENT: Quality ID [id number]: Final reports for procedures using fluoroscopy that document radiation exp osure indices, or exposure time and number of fluorographic images (if radiation exposure indices are not available) TECHNICAL DOCUMENTATION: JOB ID: [id number] [employer]- All Rights Reserved Reading location - IP/workstation name: [email or web address]
== END ==
LOC: RAD 07:45
PROVIDERS: ATTEND Internal Medicine Gastroenterology
DX: Z32.00 Encounter for pregnancy test, result unknown (principal); R11.11 Vomiting without nausea; R93.3 Abnormal findings on diagnostic imaging of other parts of digestive tract
CPT/HCPCS: 74220; 81025

== ENCOUNTER → 2018-04-03 | Outpatient (CLI) | payer BC ==
--- NOTE | 2018-04-03 16:35 | WOMENS IMAGING REPORT ---
EXAM DESCRIPTION: BILAT SCREENING MAMMO W/CAD COMPLETED DATE/TIME: 04/03/2018 9:56 am REASON FOR STUDY: ROUTINE BILATERAL SCREENING;Z12.31 Z12.31 ENCNTR SCREEN MAMMOGRAM FOR MALIGNANT N EOPLASM OF JAZZ COMPARISON: 2017 TECHNIQUE: Standard craniocaudal and mediolateral oblique views of each breast recorded using Poik[place] l acquisition. LIMITATIONS: None. FINDINGS: No masses, calcifications or architectural distortion. No areas of suspicion. Read with the assistance of CAD. .[facility] - R2 Cenova Version 1.3 .[facility] - R2 Cenova Version 2.1 .[facility] - R2 Cenova Version 2.4 .[facility] - R2 Cenova Version 2.4 .[facility] - R2 [employer]line Lounge Receptionist Version 9.2 IMPRESSION: NORMAL MAMMOGRAM. BIRADS 1. BREAST DENSITY: b. There are scattered areas of fibroglandular density. BIRAD: 1 NEGATIVE RECOMMENDATION: ROUTINE SCREENING COMMENT: The patient has been notified of the results by letter per SA requirements. Additional no tification policies are in place for contacting patient with suspicious or incomplete findings. Quality ID #[id number]: The [employer] recommends an annual screening mammogram for women aged 40 years or over. This facility utilizes a reminder system to ensure that all patients receive reminder letters, and/or direct phone calls for appointments. This includes reminders for routine scr eening mammograms, diagnostic mammograms, or other Breast Imaging Interventions when appropriate. Th is patient will be placed in the appropriate reminder system. The [employer] (A[employer]) has developed recommendations for screening MRI of the breast s in certain patient populations, to be used in conjunction with mammography. Breast MRI surveillanc e may be appropriate for women with more than 20% lifetime risk of developing breast cancer as deter mined by genetic testing, significant family history of the disease, or history of mantle radiation f or Hodgkins Disease. ACR Practice Guidelines 2008. TECHNICAL DOCUMENTATION: FINDING NUMBER: (1) ASSESSMENT: (1) JOB ID: [id number] [employer]- All Rights Reserved Reading location - IP/workstation name: [email or web address]
== END ==
LOC: WI 09:17
PROVIDERS: ATTEND Physician Assistant
DX: Z12.31 Encounter for screening mammogram for malignant neoplasm of breast (principal)
CPT/HCPCS: 77067

== ENCOUNTER 2018-06-29 21:43 | Emergency (ER) | payer BC ==
[2018-06-29 22:01] VITALS: BP 119/83
[2018-06-29 23:01] LABS: APPEARANCE,URINE SLIGHTLY-CLOUDY; BILIRUBIN,URINE NEGATIVE (NEGATIVE); GLUCOSE, URINE NEGATIVE (NEGATIVE); KETONES,URINE NEGATIVE (NEGATIVE); LEUKOCYTE ESTERASE,URINE NEGATIVE (NEGATIVE); NITRITE,URINE NEGATIVE (NEGATIVE); PROTEIN,URINE NEGATIVE (NEGATIVE); URINE SPECIFIC GRAVITY 1.008; UROBILINOGEN,URINE NEGATIVE mg/dL (<2.0)
[2018-06-29 23:03] LABS: COLOR,URINE PINK
[2018-06-30 02:52] LABS: ABSOLUTE BASOPHILS # (AUTO) 0.1 10^3/uL (0.0-0.2); ABSOLUTE EOSINOPHILS # (AUTO) 0.3 10^3/uL (0.0-0.6); ABSOLUTE MONOCYTES (AUTO) 0.7 10^3/uL (0.1-1.4); ABSOLUTE NEUT (AUTO) 6.6 10^3/uL (1.7-8.2); BASOPHILS % (AUTO) 0.6 % (0-2); EOSINOPHILS % (AUTO) 2.7 % (0-6); HEMATOCRIT 34.1 % (36.0-47.0); HEMOGLOBIN 11.2 g/dL (12.0-15.5); LYMPHOCYTES % (AUTO) 20.8 % (13-45); MEAN CORPUSCULAR HEMOGLOBIN 27.2 pg (27.0-33.4); MEAN CORPUSCULAR VOLUME 82 fl (80-97); MONOCYTES % (AUTO) 7.3 % (3-13); PLATELET COUNT 354 10^3/uL (150-450); RED BLOOD COUNT 4.14 10^6/uL (3.72-5.28); RED CELL DISTRIBUTION WIDTH 14.9 % (11.5-14.0); SEGMENTED NEUTROPHILS % (AUTO) 68.6 % (42-78); TOTAL CELLS COUNTED % (AUTO) 100 %; WHITE BLOOD COUNT 9.7 10^3/uL (4.0-10.5)
[2018-06-30] MEDS ORDERED: ACETAMINOPHEN 325 MG TABLET PO ONE ×2 (03:53→06:07)
--- NOTE | 2018-06-30 06:14 | ER Document Report ---
ED General - General Chief Complaint: Vaginal Bleeding Stated Complaint: CONCERNS Time Seen by Provider: 06/30/18 06:07 Primary Care Provider: JESUS VEGA PA [Primary Care Provider] - Follow up as needed Notes: 42-year-old G5, P3 female presents to the emergency department for heavy vaginal bleeding. She states she has gone through at least 10 pads since yesterday and is actively bleeding. She also has acute lower abdominal pain in the suprapubic area. She denies any fevers or chills, dizziness, lightheadedness, weakness, nausea or vomiting, shortness of breath or chest pain. She denies any urinary symptoms. TRAVEL OUTSIDE OF THE [place] IN LAST 30 DAYS: No - Related Data Allergies/Adverse Reactions: No Known Allergies Allergy (Unverified 05/19/16 00:30) Past Medical History - Social History Smoking Status: Never Smoker Chew tobacco use (# tins/day): No Frequency of alcohol use: None Drug Abuse: None Family History: None, Reviewed & Not Pertinent Patient has suicidal ideation: No Patient has homicidal ideation: No Neurological Medical History: Reports: Hx Migraine Renal/ Medical History: Denies: Hx Peritoneal Dialysis Psychiatric Medical History: Reports: Hx Depression Past Surgical History: Reports: Other - Rhinoplasty Review of Systems - Review of Systems Constitutional: See HPI EENT: No symptoms reported Cardiovascular: See HPI Respiratory: See HPI Gastrointestinal: See HPI Genitourinary: See HPI Female Genitourinary: See HPI Musculoskeletal: No symptoms reported Skin: No symptoms reported Hematologic/Lymphatic: No symptoms reported Neurological/Psychological: See HPI Physical Exam - Vital signs Vitals: Temp Pulse Resp BP Pulse Ox 98.8 F 86 20 119/83 98 06/29/18 21:59 06/29/18 21:59 06/29/18 21:59 06/29/18 21:59 06/29/18 21:59 - Notes Notes: PHYSICAL EXAMINATION: Reviewed vital signs and charting by RN GENERAL: Well-nourished in mild distress, nontoxic-appearing HEAD: Atraumatic, normocephalic. EYES: Pupils are 3 mm and equal, extraocular movements intact, sclera anicteric, conjunctiva are normal. LUNGS: Breath sounds present, equal, and clear to auscultation bilaterally. No wheezes, rales, or rhonchi. HEART: Regular rate and rhythm without murmurs, rubs, or gallops. 2+ peripheral pulses. Normal capillary refill. ABDOMEN: Soft, acute tenderness to palpation suprapubic area, nondistended. Normoactive bowel sounds. No guarding, no rebound. No masses appreciated. PELVC: Deferred. EXTREMITIES: Normal range of motion, no pitting or edema. No cyanosis. PSYCH: Normal mood, normal affect. No suicidal thoughts/ideations. No homocidal thoughts/ideations. No hallucinations. SKIN: Warm, dry, normal turgor, no rashes or lesions noted. Course - Re-evaluation Re-evalutation: 06/30/18 06:14 In mild distress. Reports heavy bleeding. Transvaginal ultrasound with Doppler ordered. 06/30/18 07:45 Transvaginal ultrasound complete. It does show a gestational sac in the uterus with no heart tones. I discussed this with the patient using Martti translation. She says that she has gone through at least 6 or 7 pads since she is been here on top of the 10 that she is gone through since yesterday. I plan to get one more CBC to ensure she is not acutely anemic. We will call the on- call clock repairer. 06/30/18 08:26 Pelvic exam was performed by BOBY Freire at the patient's request because she did not want any male to perform it. She reported that the cervical office was closed and there was a moderate amount of blood coming from it. I spoke with Dr. Piyush Martinez, clock repairer on-call, recommended giving her Cytotec 800 micr ograms and Motrin for cramping. He wants her to follow-up in his office in approximately 1 week. His anticipatory guidance was that she will bleed for the next 24 to 48 hours. Repeat CBC was 11.4 which is reassuring. At this time patient has strict instructions from Dr. Martinez and we have a plan in place. She is currently stable for discharge. 06/30/18 08:50 - Vital Signs Vital signs: Temp Pulse Resp BP Pulse Ox 98.8 F 86 20 119/83 98 06/29/18 21:59 06/29/18 21:59 06/29/18 21:59 06/29/18 21:59 06/29/18 21:59 - Laboratory Result Diagrams: 06/30/18 02:43 Laboratory results interpreted by me: 06/29/18 06/30/18 06/30/18 22:30 00:53 02:43 Hgb 11.2 L Hct 34.1 L RDW 14.9 H Beta HCG, Quant 3718.00 H Urine Blood LARGE H Discharge - Discharge Clinical Impression: Vaginal bleeding during , Absent heart tones Condition: Stable Disposition: HOME, SELF-CARE Additional Instructions: Your ultrasound today showed that there was a gestational sac in your uterus but there were no heart tones present. I spoke with the clock repairer on-call, Dr. Piyush Martinez, who recommended that we give you the medication called Cytotec. You can expect to have bleeding for the next 24 to 48 hours. Please take Motrin 600 mg every 6 hours for cramping as you will have severe cramping. He said to follow-up in his office in 1 week and information is provided in this discharge paperwork. Please return if you develop severe abdominal pain, bleeding that goes through more than 2 pads for more than 2 hours, become very lightheaded or dizzy, pass out, or have any other symptoms that are concerning to you. Forms: Return to Work Referrals: JESUS VEGA PA [Primary Care Provider] - Follow up as needed PIYUSH MARTINEZ MD [ACTIVE STAFF] - Follow up in 1 week
--- NOTE | 2018-06-30 07:24 | RADIOLOGY REPORT (SQ) ---
EXAM: Ultrasound transvaginal CLINICAL DATA: Positive and vaginal bleeding. TECHNICAL DATA: Sonographic imaging of the pelvis was performed endovaginally on 06/30/2018 at 6:41 AM COMPARISONS: None FINDINGS: The uterus is normal in size and configuration and measures: 8.7 x 5.2 x 5.5 cm. The cervical length measures 2.4 cm. There is a normal appearing intrauterine gestational sac within the lower uterine segment. The average sac diameter measures there is a yolk sac and pole present within the gestational sac. No heart tones are identified. The average crown-rump length measures 0.77 cm corresponding to a gestational age of six weeks five days. The right ovary is grossly normal in size, shape and echogenicity and measures: 1.8 x 1.1 x 1.5 cm. There is normal pulsed and color Doppler flow to the right ovary. There are no right adnexal mass lesions.. The left ovary is grossly normal in size, shape and echogenicity and measures: 0.8 x 1.3 x 2.1 cm. There is normal pulsed and color Doppler flow to the left ovary. There are no left adnexal mass lesions.. There is a small amount of free fluid in the pelvis bilaterally. IMPRESSION: 1. There is an intrauterine gestational sac in the lower uterine segment which contains a yolk sac and pole corresponding to a 6 week 5 day . However, no heart tones are identified. 2. Grossly normal sonographic evaluation of the ovaries. 3. Small amount of free fluid in the adnexal regions bilaterally.
[2018-06-30 08:31] LABS: HEMATOCRIT 34.5 % (36.0-47.0); HEMOGLOBIN 11.4 g/dL (12.0-15.5); MEAN CORPUSCULAR HGB CONC 33.1 g/dL (32.0-36.0); MEAN CORPUSCULAR VOLUME 81 fl (80-97); PLATELET COUNT 351 10^3/uL (150-450); RED BLOOD COUNT 4.24 10^6/uL (3.72-5.28); RED CELL DISTRIBUTION WIDTH 14.6 % (11.5-14.0); WHITE BLOOD COUNT 7.8 10^3/uL (4.0-10.5)
[2018-06-30] MEDS ORDERED: MISOPROSTOL 0.2 MG TABLET PO ONE (08:31)
[2018-06-30] MEDS ORDERED: IBUPROFEN 600 MG TABLET PO ONE (08:31)
== END 2018-06-30 08:58 | disposition home or self-care (01) ==
LOC: ER 21:43
DX: O20.9 Hemorrhage in early pregnancy, unspecified (principal); O09.529 Supervision of elderly multigravida, unspecified trimester
CPT/HCPCS: 36415; 76817; 81001; 84702; 85025; 85027; 86900; 86901; 93976; 99284

== ENCOUNTER 2018-12-29 13:47 | Emergency (ER) | payer BC ==
--- NOTE | 2018-12-29 14:18 | ER Document Report ---
ED Medical Screen (RME) - General Chief Complaint: Possible Overdose Stated Complaint: POSSIBLE OVERDOSE Time Seen by Provider: 12/29/18 13:50 Primary Care Provider: JESUS VEGA PA [Primary Care Provider] - Follow up as needed Notes: Patient is a 43-year-old female with a history of anxiety and depression who presents emergency department with a chief complaint of overdose. The states that around 1230 patient called her friend in [facility] and reported she took 30 pills. It is not estimated that the patient took 30-50 Ativan tablets. The Ativan tablets were 1 mg a piece. The states that the patient did have a history of overdose in the past when she lived in [facility] in an attempt to hurt herself. There has been no vomiting. TRAVEL OUTSIDE OF THE [place] IN LAST 30 DAYS: No - Related Data Allergies/Adverse Reactions: No Known Allergies Allergy (Unverified 05/19/16 00:30) Past Medical History Neurological Medical History: Reports: Hx Migraine Renal/ Medical History: Denies: Hx Peritoneal Dialysis Psychiatric Medical History: Reports: Hx Depression Past Surgical History: Reports: Other - Rhinoplasty Physical Exam - Vital signs Vitals: Temp Pulse Resp BP Pulse Ox 97.5 F 110 H 20 105/60 100 12/29/18 13:51 12/29/18 13:51 12/29/18 13:51 12/29/18 13:51 12/29/18 13:51 Course - Re-evaluation Re-evalutation: 12/29/18 14:17 I have greeted and performed a rapid initial assessment of this patient. A comprehensive ED assessment and evaluation of the patient, analysis of test results and completion of the medical decision making process will be conducted by additional ED providers. I did speak with Poison control regarding the patient case; recommendations include: *Does not recommend reversal at this time due to patient chronic use and potential for seizure *Supportive care due to resp. depression, CHIEF ACCOUNTING OFFICER effects *Risk window; 4 hours. *Acetaminophen level ( does recommend level drawn at 4 hrs for co-ingestion). - Vital Signs Vital signs: Temp Pulse Resp BP Pulse Ox 97.5 F 110 H 20 105/60 100 12/29/18 13:51 12/29/18 13:51 12/29/18 13:51 12/29/18 13:51 11/15/19 13:51 Doctor's Discharge - Discharge Referrals: JESUS VEGA PA [Primary Care Provider] - Follow up as needed
[2018-12-29] MEDS ORDERED: NORMAL SALINE 1000 ML 1,000 ML IV ONE (14:21)
--- NOTE | 2018-12-29 14:55 | ER Document Report ---
ED Psych Disorder / Suicide - General Chief Complaint: Overdose Stated Complaint: POSSIBLE OVERDOSE Time Seen by Provider: 12/29/18 13:50 Primary Care Provider: JESUS VEGA PA [PHYSICIAN CUTTER HOT KNIFE] - Follow up as needed Notes: Patient is a 43-year-old female who presents the emergency department with suicidal ideation. Patient is primarily Nepali-speaking and the patient's offered to translate. Patient was also sleepy and only provided some information. She was at home and she felt like she had an anxiety moment and ended up taking 2 Lorazepam, but her symptoms did not go away. She then ended up taking 5 more, but her symptoms still did not go away and then she ended up taking a whole bottle. Patient has a history of depression, anxiety, hallucinations, attempted suicide 9 years ago. According to the patient's , the patient's daughter is bisexual and that bothers the patient. P atient states that she does not want to live anymore. When the came home, he found a knife next to her with the empty bottle. TRAVEL OUTSIDE OF THE [place] IN LAST 30 DAYS: No - Related Data Allergies/Adverse Reactions: No Known Allergies Allergy (Unverified 05/19/16 00:30) Past Medical History - Social History Smoking Status: Never Smoker Chew tobacco use (# tins/day): No Frequency of alcohol use: None Drug Abuse: None Family History: None, Reviewed & Not Pertinent Patient has suicidal ideation: No Patient has homicidal ideation: No Neurological Medical History: Reports: Hx Migraine Renal/ Medical History: Denies: Hx Peritoneal Dialysis Psychiatric Medical History: Reports: Hx Depression Past Surgical History: Reports: Other - Rhinoplasty Review of Systems - Review of Systems Notes: REVIEW OF SYSTEMS: CONSTITUTIONAL : Denies recent illness. Denies recent unintentional weight loss. Denies fever, chills, or sweats. EENT: Denies eye, ear, throat, or mouth pain, discharge, or symptoms. Denies nasal or sinus congestion. CARDIOVASCULAR: Denies chest pain. RESPIRATORY: Denies shortness of breath, cough, congestion, difficulty breathing, or wheezing. GASTROINTESTINAL: Denies nausea, vomiting, and diarrhea. Denies abdominal pain. Denies constipation. GENITOURINARY: Denies difficulty urinating, burning, blood in urine, urgency or frequency. MUSCULOSKELETAL: Denies neck and back pain. Denies joint pain or swelling. SKIN: Denies rash, itchiness, or lesions HEMATOLOGIC : Denies easy bruising or bleeding. LYMPHATIC: Denies swollen, painful, enlarged glands. NEUROLOGICAL: Denies no numbness or tingling denies weakness. Denies headache. Denies altered mental status. Denies alteration in speech. PSYCHIATRIC: See HPI. All other systems reviewed and negative. Physical Exam - Vital signs Vitals: Temp Pulse Resp BP Pulse Ox 97.5 F 110 H 20 105/60 100 12/29/18 13:51 12/29/18 13:51 12/29/18 13:51 12/29/18 13:51 12/29/18 13:51 - Notes Notes: PHYSICAL EXAMINATION: GENERAL: Appears well, healthy, well-nourished, no acute distress. HEAD: Normocephalic, atraumatic. EYES: PERRL, conjunctiva normal, all extraocular movements intact, sclera nonicteric ENT: Moist mucous membranes. NECK: Supple, no noticeable swelling, redness, rash. Normal range of motion. LUNGS: Equal breath sounds bilaterally and clear to auscultation. No wheezes rales or rhonchi. CARDIOVASCULAR: S1-S2, regular rate, regular rhythm. Radial pulses 2+, normal. ABDOMEN: Normoactive bowel sounds. Soft, nontender, no guarding, no rebound tenderness, and no masses palpated. EXTREMITIES: Normal strength and range of motion, no pitting or edema. No cyanosis. NEUROLOGICAL: Moves all extremities upon command. Strength 5/5 in all extremities. PSYCH: Groggy, sleepy. SKIN: Warm, dry. No rash, lesions, ulcerations noted. Normal skin turgor. Course - Re-evaluation Re-evalutation: 12/29/18 16:31 Poison control is recommending the patient have a second acetaminophen level checked 4 hours after the first. 12/29/18 19:31 Patient's urine drug screen is negative. There are no benzodiazepines, as the patient states that she took some Ativan. Urinalysis unremarkable. Chemistries are unremarkable. hCG is negative. Hematology is also unremarkable. Awaiting second alcohol acetaminophen level. As long as the patient's second acetaminophen level is normal, the patient will be cleared for all health ese luation. 12/29/18 20:38 Patient's repeat acetaminophen level was negative. I was informed that the patient had pulled out her IV. She will receive Haldol 5 mg p.o. At this time, the patient is stable for mental health evaluation. Patient is petitioned for IVC. No recommendations noted at this time. - Vital Signs Vital signs: Temp Pulse Resp BP Pulse Ox 97.5 F 110 H 20 90/60 L 97 12/29/18 13:51 12/29/18 13:51 12/29/18 19:06 12/29/18 19:06 12/29/18 19:06 - Laboratory Result Diagrams: 12/29/18 15:41 12/29/18 16:23 Laboratory results interpreted by me: 12/29/18 12/29/18 16:23 20:09 Salicylates < 1.0 L Acetaminophen < 10 L < 10 L - EKG Interpretation by Me Additional EKG results interpreted by me: 12/29/18 20:37 Sinus tachycardia. Rate 111. RI 148; QRS 78; QT 336; QTc 457. Some artifact noted. No ST elevations or depressions noted. No acute change from previous EKG done on 12/19/2017. Discharge - Discharge Clinical Impression: Suicidal ideation Condition: Stable Disposition: PSYCH HOSP/UNIT Referrals: JESUS VEGA PA [PHYSICIAN CUTTER HOT KNIFE] - Follow up as needed
[2018-12-29 16:00] LABS: ABSOLUTE EOSINOPHILS # (AUTO) 0.1 10^3/uL (0.0-0.6); ABSOLUTE LYMPHOCYTES (AUTO) 1.9 10^3/uL (0.5-4.7); ABSOLUTE MONOCYTES (AUTO) 0.4 10^3/uL (0.1-1.4); ABSOLUTE NEUT (AUTO) 4.2 10^3/uL (1.7-8.2); BASOPHILS % (AUTO) 0.4 % (0-2); EOSINOPHILS % (AUTO) 1.2 % (0-6); HEMATOCRIT 39.4 % (36.0-47.0); HEMOGLOBIN 13.6 g/dL (12.0-15.5); MEAN CORPUSCULAR HEMOGLOBIN 29.4 pg (27.0-33.4); MEAN CORPUSCULAR HGB CONC 34.5 g/dL (32.0-36.0); MEAN CORPUSCULAR VOLUME 85 fl (80-97); MONOCYTES % (AUTO) 6.4 % (3-13); PLATELET COUNT 303 10^3/uL (150-450); RED BLOOD COUNT 4.62 10^6/uL (3.72-5.28); RED CELL DISTRIBUTION WIDTH 13.8 % (11.5-14.0); TOTAL CELLS COUNTED % (AUTO) 100 %; WHITE BLOOD COUNT 6.6 10^3/uL (4.0-10.5)
[2018-12-29 17:21] LABS: ALBUMIN 4.1 g/dL (3.5-5.0); ALKALINE PHOSPHATASE 74 U/L (38-126); ANION GAP 7 (5-19); ASPARTATE AMINO TRANSFERASE 16 U/L (14-36); BILIRUBIN,TOTAL 0.4 mg/dL (0.2-1.3); BLOOD UREA NITROGEN 7 mg/dL (7-20); CALCIUM 9.5 mg/dL (8.4-10.2); CARBON DIOXIDE 29 mmol/L (22-30); CHLORIDE 105 mmol/L (98-107); GLUCOSE 89 mg/dL (75-110); POTASSIUM 3.7 mmol/L (3.6-5.0); TOTAL PROTEIN 7.4 g/dL (6.3-8.2)
[2018-12-29 17:22] LABS: ACETAMINOPHEN < 10 ug/mL (10-30); ALCOHOL < 10 mg/dL (NONE DETECTED); SALICYLATE < 1.0 mg/dL (2.0-20.0)
--- NOTE | 2018-12-29 17:45 | PSYCHOLOGICAL NOTE ---
Psych Note - Psych Note Date seen by psych provider: 12/29/18 Time seen by psych provider: 16:00 Psych Note: Patient is recommended for IVC petition for overnight mental health observation. Patient intentionally overdosed stating " I could not find a solution." Patie nt's affect is very labile. Patient be reevaluated.
[2018-12-29 17:50] LABS: APPEARANCE,URINE CLEAR; BILIRUBIN,URINE NEGATIVE (NEGATIVE); COLOR,URINE STRAW; GLUCOSE, URINE NEGATIVE (NEGATIVE); KETONES,URINE NEGATIVE (NEGATIVE); LEUKOCYTE ESTERASE,URINE NEGATIVE (NEGATIVE); NITRITE,URINE NEGATIVE (NEGATIVE); PROTEIN,URINE NEGATIVE (NEGATIVE); URINE SPECIFIC GRAVITY 1.003; UROBILINOGEN,URINE NEGATIVE mg/dL (<2.0)
[2018-12-29 18:03] LABS: URINE AMPHETAMINES SCREEN NEGATIVE; URINE BARBITURATES SCREEN NEGATIVE; URINE BENZODIAZEPINES SCREEN NEGATIVE; URINE COCAINE SCREEN NEGATIVE; URINE MARIJUANA (THC) SCREEN NEGATIVE; URINE METHADONE SCREEN NEGATIVE; URINE PHENCYCLIDINE SCREEN NEGATIVE
[2018-12-29] MEDS ORDERED: HALOPERIDOL 5 MG TABLET PO ONE (20:44)
[2018-12-29] MEDS ORDERED: ZIPRASIDONE MESYLATE INJ/PF 20 MG SDV IM ONE (21:32)
[2018-12-29] MEDS ORDERED: QUETIAPINE FUMARATE 25 MG TABLET PO SCH (22:00)
--- NOTE | 2018-12-30 03:52 | ER Document Report ---
Doctor's Note Notes: 12/30/18 03:41 Nursing staff and myself have tried to redirect the patient multiple times. She continues to walk out of her room and go into other patient rooms. Patient continues to ask for her cell phone. Charge nurse Brisa states patient is unable to assess her cell phone as she has on IVC paperwork. Patient voices she does not speak Argentine. GLO press feeder broomcorn has been used multiple times by myself. I have discussed with patient we may have to restrain her if she is refusing to stay in her room. Nursing brings my attention that the patient has gone back in her room multiple times but at this point time is refusing to sit in the bed. She has been treated with PO haldol and IM Geodon and still will not stay in her room. Pt. keeps walking into the bahena, trying to leave the ED and walking into other pts rooms. She is a flight risk and also a danger to the other pts. Restraints ordered and applied at this time.
--- NOTE | 2018-12-30 11:43 | EKG REPORT ---
SEVERITY:- OTHERWISE NORMAL ECG - SINUS TACHYCARDIA : Confirmed by: Marah Gamez MD 30-Dec-2018 11:42:43
[2018-12-30] MEDS: OLANZAPINE 5 MG TAB.RAPDIS BUCCAL SCH ×2 (13:25→18:40)
[2018-12-30] MEDS: BUSPIRONE HCL 10 MG TABLET PO SCH ×2 (13:25→18:40)
[2018-12-30] MEDS: BENZTROPINE MESYLATE 1 MG TABLET PO SCH (13:26)
--- NOTE | 2018-12-30 15:47 | ER Document Report ---
Doctor's Note Notes: 12/30/18 15:46 Vitals stable. Continuing to rest comfortably. Patient will remain IVC per psychiatric recommendations.
[2018-12-31] MEDS: BUSPIRONE HCL 10 MG TABLET PO SCH ×2 (10:18→17:47)
[2018-12-31] MEDS: OLANZAPINE 5 MG TAB.RAPDIS BUCCAL SCH (10:18)
[2018-12-31] MEDS: BENZTROPINE MESYLATE 1 MG TABLET PO SCH (10:18)
[2018-12-31] MEDS ORDERED: BENZTROPINE MESYLATE 1 MG TABLET PO SCH (12:17)
--- NOTE | 2018-12-31 13:21 | ER Document Report ---
Doctor's Note Notes: 12/31/18 13:21 Evaluated patient. Vitals stable except for mild tachycardia. Patient currently resting comfortably. Per psychiatric recommendations patient's p.o. Zyprexa and p.o. Cogentin or switch to IM. Zyprexa p.o. on Cogentin p.o. 4 held at this time.
--- NOTE | 2018-12-31 15:49 | PSYCHOLOGICAL NOTE ---
Psych Note - Psych Note Date seen by psych provider: 12/30/18 Time seen by psych provider: 08:10 Psych Note: Patient is recommended for continued IVC. Patient has demonstrated little insight into her overdose stating only that she needs to go home. Clinician also notes that patient uses her language barrier to her benefit when she does not hear what she does not not like i.e. can communicate effectively in Kittitian until hearing that she cannot go home and then states she cannot understand Kittitian. Patient continues to demonstrate high level of anxiety and agitation and must be redirected frequently. Patient's reports concern that the patient has recently had a change in her therapist and is only met with a new therapist a couple times so has not developed a relationship. He states that she has had a difficult time adjusting to losing her therapist. He states he does not feel that the medications have been working and is concerned that she needs inpatient psychiatric treatment for stabilization. Patient has had previous overdose attempt and treatment when living in [place]. He disclosed that he was contacted by a friend in [facility] that the patient was trying to harm herself because she was on video phone call with that friend when she was very upset and took pills. He reports that when he arrived she had already taken the medication and there was a large knife sitting next to her. Patient will be reevaluated. Dr. Gentile was consulted and the care management of this patient; attending physicians in agreement with recommendations and disposition.
--- NOTE | 2018-12-31 15:56 | PSYCHOLOGICAL NOTE ---
Psych Note - Psych Note Date seen by psych provider: 12/31/18 Time seen by psych provider: 12:00 Psych Note: Reason for consult: intentional overdose Checking conducted with patient: Patient continues to demonstrate high level of anxiety and frequently attempting to make phone calls. Patient requires frequent redirection. Clinician was notified that the patient was attempting to vomit after taking her medications. Medications were adjusted to IM. Patient continues to state that she needs to go home. Patient's affect is very labile and frequently begins to cry and beg. Patient's reports that the patient will act in this manner when she is experiencing high anxiety. He reports that she typically will take her medications and sometimes will drink alcohol to "calm down." Patient's information has been faxed to [facility] and [facility]. [facility] has contacted clinician and stated that the patient had been denied. Depression per history provided by patient Anxiety per history provided by patient Cluster B personality traits are noted;R/O histrionic personality disorder Medication recommendations per [facility]'s contracted psychiatrist Dr. Dayanna BUCK are as follows: Zyprexa 5 mg twice daily Cogentin 1 mg daily BuSpar 5 mg twice daily Patient is recommended for continued IVC. Patient has demonstrated little insight into her overdose stating only that she needs to go home. There is significant concern that the patient has not been on appropriate medications over the years and has been self-medicating when experiencing significant episodes. Patient has required IM medication change due to her attempting to vomit up her medication; patient will be reevaluated. Dr. Gentile was consulted and the care management of this patient; attending physicians in agreement with recommendations and disposition.
[2018-12-31] MEDS: OLANZAPINE INJ/PF 10 MG SDV IM SCH (17:47)
[2019-01-01] MEDS ORDERED: BENZTROPINE MESYLATE INJ 2 MG/2 ML AMPULE IM SCH (10:00)
--- NOTE | 2019-01-01 10:58 | ER Document Report ---
Doctor's Note Notes: 01/01/19 10:55 Patient is a 43-year-old female who presents on IVC papers is currently on IVC for initial overdose and unspecified psychosis. Patient does continue to exhibit labile emotion. She has been able to eat and drink without difficulty. She is urinating normally and having normal bowel movements. Denies any headache, fever, neck pain, URI, sore throat, chest pain, palpitations, syncope, cough, shortness of breath, wheeze, dyspnea, abdominal pain, nausea/vomiting/diarrhea, urinary retention, dysuria, hematuria, or rash. General: A&O. Answers questions appropriately. Heart: RRR Lungs: CTAB Psych: emotional, labile A/P: Continue monitoring and med rec's per . Continue IVC Normal diet
[2019-01-01] MEDS: OLANZAPINE INJ/PF 10 MG SDV IM SCH (11:12)
[2019-01-01] MEDS: BUSPIRONE HCL 10 MG TABLET PO SCH (11:12)
[2019-01-01 14:33] VITALS: BP 104/77
--- NOTE | 2019-01-01 16:50 | PSYCHOLOGICAL NOTE ---
Psych Note - Psych Note Date seen by psych provider: 01/01/19 Time seen by psych provider: 09:40 Psych Note: Reason for consult: SI Patient is a 43year old female who presented to ED via POV on 12/29/2018 due to a suspected overdose. Patient is tearful and begging clinician for help. Patient states the nursing staff will not allow her to make phone calls to her . Patient denies event was a suicide attempt. Patient states she just wanted to sleep the whole day. Patient states her mental health is declining in the hospital environment. Patient states she had an argument with her daughter and , and that exasperated her depression. Patient stated she does not speak good Togolese. Clinician spoke with who expressed concern with patient being discharged. reported patient alluded to harming her daughter. described patient as impulsive and would not listen to . reports patient experiences auditory and visual hallucinations. reports patient depends on people too much as becomes agitated when patient feels people turn their backs on her. was informed this information would be relayed to the treatment team. Clinician was making rounds and observed yelling aggressively with nursing staff stating patient told him the nurse yanked her hair and stated something to the effect of the patient is stupid and needs to learn Togolese. Clinician stated the rooms are recorded for patient safety and the tapes could be reviewed. did not ask for tapes to be reviewed. Nurse denied allegations, and then reviewed with the IVC rules that were attempted to be violated by patient and (use of cell phone). stated he has a legal right to be with patient and placed his phone on nursing station and entered patients room. Patient is alert and oriented to person, place, time and circumstance. Mood is tearful with congruent affect as appropriate engagement with clinician. Patient denies current suicidal ideation. Patient denies homicidal ideation. Patient denies auditory and visual hallucinations. Delusions are absent and behavior is congruent with an intact reality based presentation (i.e. organized and linear thought processes). There is no observed behavior that suggests patient is responding to internal stimuli. Eye contact is good. Conversational speech is not within normal rate, tone, and prosody. Intellectual ability appears to be average range. Attention and concentration are fair. Insight, judgment, and impulse control are poor. DSM Diagnosis: Per report, anxiety Cluster B traits Medication recommendations per [facility] contracted psychiatrist Dr. Dayanna BUCK is as follows: Zyprexa 5 mg twice daily Cogentin 1 mg daily BuSpar 5 mg twice daily Impression/Plan: Patient was accepted for admittance to [place] for further treatment. Dr. Gentile was consulted on the care and management of this patient; attending physician is in agreement with recommendations and disposition.
== END 2019-01-01 15:19 ==
LOC: ER 13:47
DX: Z04.6 Encounter for general psychiatric examination, requested by authority (principal); T42.4X2A Poisoning by benzodiazepines, intentional self-harm, initial encounter; Y92.009 Unspecified place in unspecified non-institutional (private) residence as the place of occurrence of the external cause; R00.0 Tachycardia, unspecified; Z78.1 Physical restraint status; Z75.1 Person awaiting admission to adequate facility elsewhere
CPT/HCPCS: 93005; 36415; 80307 ×4; 84703; 85025; 80053; 81001; 93010; J0515; J3486; J7030; 96361; 96372; 96374; 99285

== ENCOUNTER → 2019-06-15 | Outpatient (CLI) | payer BC ==
--- NOTE | 2019-06-16 11:26 | RADIOLOGY REPORT (SQ) ---
EXAM DESCRIPTION: ACUTE ABDOMEN SERIES IMAGES COMPLETED DATE/TIME: 06/16/2019 10:57 am REASON FOR STUDY: PAIN M54.5 LOW BACK PAIN COMPARISON: None. NUMBER OF VIEWS: Three views. TECHNIQUE: Frontal chest, supine abdomen and upright/decubitus abdomen radiographic images acquired. LIMITATIONS: None. FINDINGS: CHEST: Lungs clear of infiltrates. FREE AIR: None. No abnormal gas collections. BOWEL GAS PATTERN: Nonspecific pattern. Solitary small bowel loop in the left epigastrium which is d istended with several fluid levels. Scattered fluid levels otherwise. No other distended loops. At least mild stool. CALCIFICATIONS: No suspicious calcifications. HARDWARE: None in the abdomen. SOFT TISSUES: No gross mass or suggestion of organomegaly. BONES: No acute fracture. No worrisome bone lesions. OTHER: No other significant finding. IMPRESSION: Nonspecific pattern. Potential ileus. Surveillance imaging followup recommended to exc lude development of obstruction. TECHNICAL DOCUMENTATION: JOB ID: [id number] 2010 [employer]- All Rights Reserved Reading location - IP/workstation name: [email or web address]
== END ==
LOC: OD 15:57
PROVIDERS: ATTEND Physician Assistant
DX: M54.5 Low back pain (principal)

== ENCOUNTER → 2019-06-21 | Outpatient (CLI) | payer BC ==
--- NOTE | 2019-06-21 14:39 | RADIOLOGY REPORT (SQ) ---
EXAM DESCRIPTION: ACUTE ABDOMEN SERIES IMAGES COMPLETED DATE/TIME: 06/21/2019 1:45 pm REASON FOR STUDY: GENERALIZED ABDOMINAL PAIN R10.84 GENERALIZED ABDOMINAL PAIN COMPARISON: 06/16/2019 NUMBER OF VIEWS: Three views. TECHNIQUE: Frontal chest, supine abdomen and upright/decubitus abdomen radiographic images acquired. LIMITATIONS: None. FINDINGS: CHEST: Lungs clear of infiltrates. FREE AIR: None. No abnormal gas collections. BOWEL GAS PATTERN: Nonobstructive pattern. No dilated loops or air fluid levels. CALCIFICATIONS: No suspicious calcifications. HARDWARE: None in the abdomen. SOFT TISSUES: No gross mass or suggestion of organomegaly. BONES: No acute fracture. No worrisome bone lesions. OTHER: No other significant finding. IMPRESSION: NO RADIOGRAPHIC EVIDENCE FOR ACUTE ABDOMINAL DISEASE. TECHNICAL DOCUMENTATION: JOB ID: [id number] 2010 [employer]- All Rights Reserved Reading location - IP/workstation name: [email or web address]
== END ==
LOC: OD 13:22
PROVIDERS: ATTEND Family Medicine
DX: R10.84 Generalized abdominal pain (principal)
CPT/HCPCS: 74022

== ENCOUNTER → 2019-08-29 | Outpatient (CLI) | payer BC ==
--- NOTE | 2019-08-29 15:13 | RADIOLOGY REPORT (SQ) ---
EXAM DESCRIPTION: BARIUM SWALLOW ESOPHAGUS IMAGES COMPLETED DATE/TIME: 08/29/2019 10:13 am REASON FOR STUDY: K21.0 GASTRO-ESOPHAGEAL REFLUX DISEASE WITH ESOPHAGITIS K21.0 GASTRO-ESOPHAGEAL R EFLUX DISEASE WITH ESOPHAGITIS COMPARISON: Barium swallow 03/31/2018 TECHNIQUE: Under fluoroscopic guidance, patient ingested effervescent granules followed by thick and thin barium. Fluoroscopic spot images and routine radiographic images acquired and stored on PACS. 12 MM BARIUM TABLET GIVEN: Yes. Delay in passage at the GE junction LIMITATIONS: None. FLUOROSCOPY TIME: FLUORO TIME: 2.4 minutes of fluoroscopy was used. 20 images saved to PACS. FINDINGS: NEUROMUSCULAR COORDINATION OF SWALLOW: Normal. No aspiration. ESOPHAGEAL MOTILITY: Esophageal dysmotility with poor primary peristalsis and stasis of barium. Mode rate dilatation of the distal esophagus consistent with achalasia. Unchanged from previous study. M ultiple tertiary contractions seen. ESOPHAGEAL MUCOSA: Dilatation of the distal half esophagus. No ulcerations or masses are seen. GASTRO-ESOPHAGEAL JUNCTION: No hiatal hernia seen. There is mild narrowing of the distal esophagus a t the GE junction which did delay passage of a 12 mm barium tablet mild reflux seen. Early peptic st ricture cannot be entirely ruled out. NON-GI TRACT STRUCTURES: No significant finding. OTHER: No other significant finding. IMPRESSION: 1. ESOPHAGEAL ACHALASIA 2. POSSIBLE PEPTIC STRICTURE OF THE DISTAL ESOPHAGUS JUST PROXIMAL TO THE GE JUNCTION WHICH DELAYS P ASSAGE OF A 12 MM BARIUM TABLET FOR APPROXIMATELY 5 MINUTES. MILD GASTROESOPHAGEAL REFLUX NOTED COMMENT: Quality ID 145: Final reports for procedures using fluoroscopy that document radiation exp osure indices, or exposure time and number of fluorographic images (if radiation exposure indices are not available) TECHNICAL DOCUMENTATION: JOB ID: [id number] 2010 [employer]- All Rights Reserved Reading location - IP/workstation name: [email or web address] [id number]
== END ==
LOC: RAD 09:31
PROVIDERS: ATTEND Physician Assistant
DX: K21.0 Gastro-esophageal reflux disease with esophagitis (principal); K22.0 Achalasia of cardia
CPT/HCPCS: 74220

== ENCOUNTER → 2019-09-04 | Outpatient (CLI) | payer BC ==
--- NOTE | 2019-09-04 10:20 | WOMENS IMAGING REPORT ---
EXAM DESCRIPTION: BILAT SCREENING MAMMO W/CAD IMAGES COMPLETED DATE/TIME: 09/04/2019 9:35 am REASON FOR STUDY: Z12.31 ENCNTR SCREEN MAMMOGRAM FOR MALIGNANT NEOPLASM OF BREAST Z12.31 ENCNTR SCR EEN MAMMOGRAM FOR MALIGNANT NEOPLASM OF JAZZ COMPARISON: 04/03/2018 and 03/31/2017. EXAM PARAMETERS: Standard craniocaudal and mediolateral oblique views of each breast recorded using digital acquisition. Read with the assistance of CAD. .[facility] - [employer] Version 9.2 LIMITATIONS: None. FINDINGS: No suspicious masses, suspicious calcifications or architectural distortion. No areas of c oncern. IMPRESSION: NEGATIVE MAMMOGRAM. BIRADS 1 BREAST DENSITY: b. There are scattered areas of fibroglandular density. BIRAD: ASSESSMENT: 1 NEGATIVE RECOMMENDATION: ROUTINE SCREENING COMMENT: The patient has been notified of the results by letter per MQSA requirements. Additional no tification policies are in place for contacting patient with suspicious or incomplete findings. Quality ID #225: The [employer] recommends an annual screening mammogram for women aged 40 years or over. This facility utilizes a reminder system to ensure that all patients receive reminder letters, and/or direct phone calls for appointments. This includes reminders for routine scr eening mammograms, diagnostic mammograms, or other Breast Imaging Interventions when appropriate. Th is patient will be placed in the appropriate reminder system. TECHNICAL DOCUMENTATION: FINDING NUMBER: (1) ASSESSMENT: (1) JOB ID: [id number] 2010 [employer]- All Rights Reserved Reading location - IP/workstation name: [email or web address]
== END ==
LOC: WI 09:15
PROVIDERS: ATTEND Physician Assistant
DX: Z12.31 Encounter for screening mammogram for malignant neoplasm of breast (principal)
CPT/HCPCS: 77067

== ENCOUNTER → 2020-03-03 | Outpatient (CLI) | payer BC ==
--- NOTE | 2020-03-03 13:11 | RADIOLOGY REPORT (SQ) ---
EXAM DESCRIPTION: ACUTE ABDOMEN SERIES IMAGES COMPLETED DATE/TIME: 03/03/2020 12:56 pm REASON FOR STUDY: (R10.9)UNSPECIFIED ABDOMINAL PAIN R10.9 UNSPECIFIED ABDOMINAL PAIN COMPARISON: 06/21/2019 NUMBER OF VIEWS: Three views. TECHNIQUE: Frontal chest, supine abdomen and upright/decubitus abdomen radiographic images acquired. LIMITATIONS: None. FINDINGS: CHEST: Lungs clear of infiltrates. FREE AIR: None. No abnormal gas collections. BOWEL GAS PATTERN: Nonobstructive pattern. No dilated loops or air fluid levels. CALCIFICATIONS: No suspicious calcifications. HARDWARE: None in the abdomen. SOFT TISSUES: No gross mass or suggestion of organomegaly. BONES: No acute fracture. No worrisome bone lesions. OTHER: No other significant finding. IMPRESSION: NO RADIOGRAPHIC EVIDENCE FOR ACUTE ABDOMINAL DISEASE. TECHNICAL DOCUMENTATION: JOB ID: [id number] 2010 [employer]- All Rights Reserved Reading location - IP/workstation name: [email or web address]
[2020-03-03 13:31] LABS: ABSOLUTE EOSINOPHILS # (AUTO) 0.1 10^3/uL (0.0-0.6); ABSOLUTE LYMPHOCYTES (AUTO) 1.3 10^3/uL (0.5-4.7); ABSOLUTE MONOCYTES (AUTO) 0.5 10^3/uL (0.1-1.4); ABSOLUTE NEUT (AUTO) 3.3 10^3/uL (1.7-8.2); BASOPHILS % (AUTO) 0.3 % (0-2); HEMATOCRIT 39.1 % (36.0-47.0); HEMOGLOBIN 13.2 g/dL (12.0-15.5); MEAN CORPUSCULAR HEMOGLOBIN 29.1 pg (27.0-33.4); MEAN CORPUSCULAR HGB CONC 33.8 g/dL (32.0-36.0); MEAN CORPUSCULAR VOLUME 86 fl (80-97); MONOCYTES % (AUTO) 8.9 % (3-13); PLATELET COUNT 260 10^3/uL (150-450); RED BLOOD COUNT 4.53 10^6/uL (3.72-5.28); RED CELL DISTRIBUTION WIDTH 13.9 % (11.5-14.0); SEGMENTED NEUTROPHILS % (AUTO) 64.8 % (42-78); TOTAL CELLS COUNTED % (AUTO) 100 %; WHITE BLOOD COUNT 5.2 10^3/uL (4.0-10.5)
[2020-03-03 13:37] LABS: APPEARANCE,URINE CLEAR; BILIRUBIN,URINE NEGATIVE (NEGATIVE); COLOR,URINE YELLOW; GLUCOSE, URINE NEGATIVE (NEGATIVE); KETONES,URINE NEGATIVE (NEGATIVE); LEUKOCYTE ESTERASE,URINE NEGATIVE (NEGATIVE); NITRITE,URINE NEGATIVE (NEGATIVE); PROTEIN,URINE NEGATIVE (NEGATIVE); URINE SPECIFIC GRAVITY 1.012; UROBILINOGEN,URINE NEGATIVE mg/dL (<2.0)
[2020-03-03 13:48] LABS: ALBUMIN 4.4 g/dL (3.5-5.0); ALKALINE PHOSPHATASE 82 U/L (38-126); ANION GAP 17 (5-19); ASPARTATE AMINO TRANSFERASE 18 U/L (14-36); BILIRUBIN,DIRECT 0.1 mg/dL (0.0-0.4); BILIRUBIN,TOTAL 0.3 mg/dL (0.2-1.3); BLOOD UREA NITROGEN 9 mg/dL (7-20); CALCIUM 9.3 mg/dL (8.4-10.2); CARBON DIOXIDE 26 mmol/L (22-30); CHLORIDE 104 mmol/L (98-107); GLUCOSE 87 mg/dL (75-110); POTASSIUM 4.2 mmol/L (3.6-5.0); TOTAL PROTEIN 7.6 g/dL (6.3-8.2)
== END ==
LOC: OD 12:16
PROVIDERS: ATTEND Physician Assistant
DX: R10.9 Unspecified abdominal pain (principal)
CPT/HCPCS: 36415; 74022; 80053; 81001; 83690; 85025